=== PATIENT | female | born 1940 | race Caucasian/White ===

== ENCOUNTER 2016-12-08 16:24 | Inpatient (IN) | payer OTHER ==
[~2016-12-08] VITALS: Ht 175.3 cm; Wt 82.4 kg
[~2016-12-08 16:24] MED LIST: ACET-1757 PO; CLON0.1T PO; CYCL-259 PO; DIAZ5TAB4 PO; FAMO20TA7 PO; FOLI-17 PO; FURO-93 PO; HYDR-3144 PO; IPRA3AMP IPPB; LEVO125T PO; LISI-170 PO; MAGN400O4 PO; MAGN400T7 PO; MULT-6 PO; OMEP-110 PO; PHEN100C PO; POTA10TA11 PO; SIMV40TA PO; THIA100T10 PO; TRAM-28 PO; TRAM50TA2 PO; TRAZ150T68 PO; WARF2TAB PO; WARF3TAB PO
[2016-12-08 17:18] VITALS: BP 133/88
[2016-12-08] MEDS ORDERED: PLEASE ENTER HEIGHT AND WEIGHT MC SCH (18:00)
[2016-12-08] MEDS: FUROSEMIDE 40 MG/4 ML IV SCH (18:27)
[2016-12-08] MEDS: DOBUTAMINE 250 MG in SODIUM CHLORIDE 0.9% 230 ML IV PRN (18:34)
[2016-12-08 18:49] LABS: BLOOD UREA NITROGEN 49 mg/dL (7-18)
[2016-12-08 18:53] LABS: ASPARTATE AMINO TRANSFERASE 17 U/L (15-37)
[2016-12-08 19:05] LABS: ANISOCYTOSIS 1+; POLYCHROMASIA 1+; VERIFY COUNTS? YES
[2016-12-08 19:06] LABS: LARGE PLATELETS 1+; OVALOCYTES 1+
[2016-12-08 19:08] LABS: DIFF TOTAL CELLS COUNTED 200 CELL DIFF
[2016-12-08 19:18] VITALS: BP 147/77
[2016-12-08] MEDS: PHENYTOIN 100 MG CAPSULE PO SCH (20:28)
[2016-12-09] MEDS: ZOLPIDEM 5MG TABLET PO PRN (01:19)
[2016-12-09 01:32] VITALS: BP 134/51
[2016-12-09] MEDS: DOBUTAMINE 250 MG in SODIUM CHLORIDE 0.9% 230 ML IV PRN ×3 (04:03→22:40)
[2016-12-09] MEDS: LEVOTHYROXINE 150 MCG TABLET PO SCH (06:28)
[2016-12-09 07:35] VITALS: BP 144/75
[2016-12-09] MEDS: METOLAZONE 2.5 MG TABLET PO SCH (08:23)
[2016-12-09] MEDS: SERTRALINE 50MG TABLET PO SCH (08:23)
[2016-12-09] MEDS: LISINOPRIL 5 MG TABLET PO SCH (08:24)
[2016-12-09] MEDS: PHENYTOIN 100 MG CAPSULE PO SCH ×3 (08:24→22:34)
[2016-12-09] MEDS: FUROSEMIDE 40 MG/4 ML IV SCH (08:25)
[2016-12-09] MEDS: SPIRONOLACTONE 25 MG TABLET PO SCH (08:25)
[2016-12-09] MEDS: POTASSIUM CHLORIDE 20 MEQ TAB.ER.PRT PO SCH (08:25)
[2016-12-09 14:45] VITALS: BP 115/74
[2016-12-09 15:37] VITALS: BP 128/60
[2016-12-09] MEDS: FUROSEMIDE 100 MG/10 ML IV SCH (15:38)
[2016-12-09 18:32] VITALS: BP 148/71
[2016-12-09] MEDS: CARVEDILOL 3.125 MG TABLET PO SCH (18:37)
[2016-12-10] MEDS: ZOLPIDEM 5MG TABLET PO PRN (01:06)
[2016-12-10 01:13] VITALS: BP 152/75
[2016-12-10 06:05] LABS: BLOOD UREA NITROGEN 34 mg/dL (7-18)
[2016-12-10] MEDS: CARVEDILOL 3.125 MG TABLET PO SCH ×2 (06:17→18:19)
[2016-12-10] MEDS: LEVOTHYROXINE 150 MCG TABLET PO SCH (06:17)
[2016-12-10 06:50] VITALS: BP 147/71
[2016-12-10] MEDS: DOBUTAMINE 250 MG in SODIUM CHLORIDE 0.9% 230 ML IV PRN (08:10)
[2016-12-10] MEDS: LISINOPRIL 5 MG TABLET PO SCH (09:00)
[2016-12-10] MEDS: FUROSEMIDE 100 MG/10 ML IV SCH ×2 (09:00→18:19)
[2016-12-10] MEDS: POTASSIUM CHLORIDE 20 MEQ TAB.ER.PRT PO SCH (09:00)
[2016-12-10] MEDS: PHENYTOIN 100 MG CAPSULE PO SCH ×3 (09:00→21:30)
[2016-12-10] MEDS: SERTRALINE 50MG TABLET PO SCH (09:00)
[2016-12-10] MEDS: SPIRONOLACTONE 25 MG TABLET PO SCH (09:00)
[2016-12-10] MEDS ORDERED: MAGNESIUM SULFATE PMX 4GM/100M 100 ML IV ONE (09:00)
[2016-12-10] MEDS: METOLAZONE 2.5 MG TABLET PO SCH (09:00)
[2016-12-10] MEDS ORDERED: methylPREDNISolone 4mg DOSE PACK PO SCH (11:30)
[2016-12-10] MEDS ORDERED: ENOXAPARIN 30 MG/0.3 ML SQ SCH (12:30)
[2016-12-10 15:27] VITALS: BP_SYST 127; BP_SYST 71; BP_DIAS 70
[2016-12-10] MEDS: DIPHENHYDRAMINE 50 MG CAPSULE PO PRN ×2 (15:29→23:38)
[2016-12-10] MEDS ORDERED: DOBUTAMINE 250 MG in SODIUM CHLORIDE 0.9% 230 ML IV PRN (16:00)
[2016-12-10 19:10] VITALS: BP 136/74
[2016-12-11] MEDS: ZOLPIDEM 5MG TABLET PO PRN (01:22)
[2016-12-11 02:39] VITALS: BP 123/70
[2016-12-11] MEDS: CARVEDILOL 3.125 MG TABLET PO SCH ×2 (05:48→18:19)
[2016-12-11] MEDS: LEVOTHYROXINE 150 MCG TABLET PO SCH (05:49)
[2016-12-11 07:16] VITALS: BP 113/67
[2016-12-11] MEDS: METOLAZONE 2.5 MG TABLET PO SCH (07:54)
[2016-12-11] MEDS: FUROSEMIDE 100 MG/10 ML IV SCH (07:54)
[2016-12-11] MEDS: SERTRALINE 50MG TABLET PO SCH (07:54)
[2016-12-11] MEDS: LISINOPRIL 5 MG TABLET PO SCH (07:55)
[2016-12-11] MEDS: POTASSIUM CHLORIDE 20 MEQ TAB.ER.PRT PO SCH (07:55)
[2016-12-11] MEDS: SPIRONOLACTONE 25 MG TABLET PO SCH (07:55)
[2016-12-11] MEDS: PHENYTOIN 100 MG CAPSULE PO SCH ×3 (07:55→21:13)
[2016-12-11 12:41] VITALS: BP 125/74
[2016-12-11] MEDS: HYDROCORTISONE CRM 1%, 30GM TP SCH ×2 (14:56→21:15)
[2016-12-11] MEDS: ENOXAPARIN 40 MG/0.4 ML SQ SCH (14:57)
[2016-12-11] MEDS: FUROSEMIDE 40 MG TABLET PO SCH (18:22)
[2016-12-11 21:14] VITALS: BP 122/75
[2016-12-11] MEDS: DIPHENHYDRAMINE 50 MG CAPSULE PO PRN (23:18)
[2016-12-12] MEDS: ZOLPIDEM 5MG TABLET PO PRN (00:35)
[2016-12-12 01:05] VITALS: BP 131/78
[2016-12-12 05:41] LABS: BLOOD UREA NITROGEN 33 mg/dL (7-18)
[2016-12-12] MEDS: LEVOTHYROXINE 150 MCG TABLET PO SCH (05:59)
[2016-12-12] MEDS: CARVEDILOL 3.125 MG TABLET PO SCH (05:59)
[2016-12-12 08:17] VITALS: BP 128/76
[2016-12-12] MEDS ORDERED: METOLAZONE 2.5 MG TABLET PO SCH (09:00)
[2016-12-12] MEDS: LISINOPRIL 5 MG TABLET PO SCH (09:12)
[2016-12-12] MEDS: POTASSIUM CHLORIDE 20 MEQ TAB.ER.PRT PO SCH (09:12)
[2016-12-12] MEDS: SERTRALINE 50MG TABLET PO SCH (09:12)
[2016-12-12] MEDS: SPIRONOLACTONE 25 MG TABLET PO SCH (09:13)
[2016-12-12] MEDS: PHENYTOIN 100 MG CAPSULE PO SCH (09:13)
[2016-12-12] MEDS: HYDROCORTISONE CRM 1%, 30GM TP SCH (09:13)
[2016-12-12] MEDS: FUROSEMIDE 40 MG TABLET PO SCH (09:13)
[2016-12-12] MEDS ORDERED: SERT50TA5 PO (10:32)
[2016-12-12] MEDS ORDERED: HYDR25TA11 PO (10:32)
[2016-12-12] MEDS ORDERED: CARV6.2512 PO (10:32)
[2016-12-12] MEDS ORDERED: POTA8TAB PO (10:32)
[2016-12-12] MEDS ORDERED: OMEP-110 PO (10:32)
[2016-12-12] MEDS ORDERED: METO2.5T PO (10:32)
[2016-12-12] MEDS ORDERED: ASPI-621 PO (10:32)
[2016-12-12] MEDS ORDERED: SPIR25TA3 PO (10:32)
[2016-12-12] MEDS ORDERED: FURO20TA3 PO (10:32)
[2016-12-12] MEDS ORDERED: LISI5TAB7 PO (10:50)
[2016-12-12] MEDS: ENOXAPARIN 40 MG/0.4 ML SQ SCH (13:20)
[2016-12-12 14:21] VITALS: BP 144/84
== END 2016-12-12 12:31 | disposition home health service (06) | DRG 308 ==
LOC: 5SO 16:24
PROVIDERS: ADMIT Internal Medicine Cardiovascular Disease; ATTEND Internal Medicine Cardiovascular Disease
DX: I47.2 Ventricular tachycardia (principal); I50.43 Acute on chronic combined systolic (congestive) and diastolic (congestive) heart failure; I42.8 Other cardiomyopathies; M87.9 Osteonecrosis, unspecified; G40.909 Epilepsy, unspecified, not intractable, without status epilepticus; Z96.649 Presence of unspecified artificial hip joint; L29.9 Pruritus, unspecified; Z88.8 Allergy status to other drugs, medicaments and biological substances; Z86.711 Personal history of pulmonary embolism; Z99.3 Dependence on wheelchair; Z82.49 Family history of ischemic heart disease and other diseases of the circulatory system; Z72.89 Other problems related to lifestyle; Z86.718 Personal history of other venous thrombosis and embolism; Z87.891 Personal history of nicotine dependence
CPT/HCPCS: 36415; 71020; 80048; 80053; 83735; 85025; 93005; 93922; 93970; J1650; J1940; J7509; 29581-50; J1250; J3475; J7050; Q0177

== ENCOUNTER → 2016-12-15 | Outpatient (CLI) | payer OTHER ==
[~2016-12-15] MED LIST changes: +ASPI-621 PO; +CARV6.2512 PO; +FURO20TA3 PO; +HYDR25TA11 PO; +LISI5TAB7 PO; +METO2.5T PO; +POTA8TAB PO; +SERT50TA5 PO; +SPIR25TA3 PO
== END | disposition home or self-care (01) ==
LOC: WOUND 08:11
PROVIDERS: ATTEND Internal Medicine
DX: I87.333 Chronic venous hypertension (idiopathic) with ulcer and inflammation of bilateral lower extremity (principal); L97.222 Non-pressure chronic ulcer of left calf with fat layer exposed; I50.9 Heart failure, unspecified; Z72.89 Other problems related to lifestyle; Z87.891 Personal history of nicotine dependence; Z86.711 Personal history of pulmonary embolism; Z86.718 Personal history of other venous thrombosis and embolism
CPT/HCPCS: 11042; G0463; WOU0463

== ENCOUNTER → 2016-12-22 | Outpatient (CLI) | payer OTHER | END | disposition home or self-care (01) | LOC: WOUND 13:57 | PROVIDERS: ATTEND Internal Medicine | DX: I87.332 Chronic venous hypertension (idiopathic) with ulcer and inflammation of left lower extremity (principal); L97.222 Non-pressure chronic ulcer of left calf with fat layer exposed; Z86.718 Personal history of other venous thrombosis and embolism; Z86.711 Personal history of pulmonary embolism; I50.43 Acute on chronic combined systolic (congestive) and diastolic (congestive) heart failure; Z87.891 Personal history of nicotine dependence; Z72.89 Other problems related to lifestyle | CPT/HCPCS: 97597 ==

== ENCOUNTER → 2016-12-29 | Outpatient (CLI) | payer OTHER | END | disposition home or self-care (01) | LOC: WOUND 15:00 | PROVIDERS: ATTEND Internal Medicine Infectious Disease | DX: I87.332 Chronic venous hypertension (idiopathic) with ulcer and inflammation of left lower extremity (principal); L97.222 Non-pressure chronic ulcer of left calf with fat layer exposed; Z86.711 Personal history of pulmonary embolism; I50.9 Heart failure, unspecified; F10.19 Alcohol abuse with unspecified alcohol-induced disorder; Z86.718 Personal history of other venous thrombosis and embolism | CPT/HCPCS: 11042; 29581 ==

== ENCOUNTER → 2017-01-05 | Outpatient (CLI) | payer OTHER | END | disposition home or self-care (01) | LOC: WOUND 13:00 | PROVIDERS: ATTEND Nurse Practitioner Family | DX: I87.331 Chronic venous hypertension (idiopathic) with ulcer and inflammation of right lower extremity (principal); L97.811 Non-pressure chronic ulcer of other part of right lower leg limited to breakdown of skin; L97.222 Non-pressure chronic ulcer of left calf with fat layer exposed; F10.19 Alcohol abuse with unspecified alcohol-induced disorder; L08.89 Other specified local infections of the skin and subcutaneous tissue; I50.22 Chronic systolic (congestive) heart failure; Z86.718 Personal history of other venous thrombosis and embolism; Z86.711 Personal history of pulmonary embolism; Z72.89 Other problems related to lifestyle; Z87.891 Personal history of nicotine dependence | CPT/HCPCS: 97597 ==

== ENCOUNTER → 2017-01-11 | Outpatient (CLI) | payer OTHER | END | disposition home or self-care (01) | LOC: WOUND 14:49 | PROVIDERS: ATTEND Internal Medicine | DX: L97.222 Non-pressure chronic ulcer of left calf with fat layer exposed (principal); L08.89 Other specified local infections of the skin and subcutaneous tissue; I87.331 Chronic venous hypertension (idiopathic) with ulcer and inflammation of right lower extremity; L97.811 Non-pressure chronic ulcer of other part of right lower leg limited to breakdown of skin; I50.43 Acute on chronic combined systolic (congestive) and diastolic (congestive) heart failure; F10.19 Alcohol abuse with unspecified alcohol-induced disorder; Z87.891 Personal history of nicotine dependence; Z86.718 Personal history of other venous thrombosis and embolism; Z72.89 Other problems related to lifestyle; Z86.711 Personal history of pulmonary embolism | CPT/HCPCS: 11042; 29581 ==

== ENCOUNTER → 2017-01-20 | Outpatient (CLI) | payer OTHER | END | disposition home or self-care (01) | LOC: WOUND 15:10 | PROVIDERS: ATTEND Internal Medicine | DX: I87.332 Chronic venous hypertension (idiopathic) with ulcer and inflammation of left lower extremity (principal); L97.222 Non-pressure chronic ulcer of left calf with fat layer exposed; F10.19 Alcohol abuse with unspecified alcohol-induced disorder; L08.89 Other specified local infections of the skin and subcutaneous tissue; I50.43 Acute on chronic combined systolic (congestive) and diastolic (congestive) heart failure; Z87.891 Personal history of nicotine dependence; Z86.718 Personal history of other venous thrombosis and embolism; Z86.711 Personal history of pulmonary embolism | CPT/HCPCS: 29581; 97597 ==

== ENCOUNTER → 2017-02-02 | Outpatient (CLI) | payer OTHER | END | disposition home or self-care (01) | LOC: WOUND 14:17 | PROVIDERS: ATTEND Internal Medicine | DX: I87.313 Chronic venous hypertension (idiopathic) with ulcer of bilateral lower extremity (principal); L97.822 Non-pressure chronic ulcer of other part of left lower leg with fat layer exposed; L97.811 Non-pressure chronic ulcer of other part of right lower leg limited to breakdown of skin; I11.0 Hypertensive heart disease with heart failure; I50.9 Heart failure, unspecified; L08.89 Other specified local infections of the skin and subcutaneous tissue; I42.9 Cardiomyopathy, unspecified; Z86.711 Personal history of pulmonary embolism; Z87.891 Personal history of nicotine dependence; Z72.89 Other problems related to lifestyle | CPT/HCPCS: 11042; 29581 ==

== ENCOUNTER → 2017-02-09 | Outpatient (CLI) | payer OTHER | END | disposition home or self-care (01) | LOC: WOUND 14:43 | PROVIDERS: ATTEND Nurse Practitioner Family | DX: I87.332 Chronic venous hypertension (idiopathic) with ulcer and inflammation of left lower extremity (principal); L97.222 Non-pressure chronic ulcer of left calf with fat layer exposed; I50.22 Chronic systolic (congestive) heart failure; L08.89 Other specified local infections of the skin and subcutaneous tissue; G93.1 Anoxic brain damage, not elsewhere classified; F10.19 Alcohol abuse with unspecified alcohol-induced disorder; Z98.890 Other specified postprocedural states; Z86.69 Personal history of other diseases of the nervous system and sense organs; Z86.711 Personal history of pulmonary embolism; Z86.718 Personal history of other venous thrombosis and embolism; Z96.649 Presence of unspecified artificial hip joint | CPT/HCPCS: 11100; 29581 ==

== ENCOUNTER → 2017-02-16 | Outpatient (CLI) | payer OTHER | END | disposition home or self-care (01) | LOC: WOUND 14:51 | PROVIDERS: ATTEND Nurse Practitioner Family | DX: I87.333 Chronic venous hypertension (idiopathic) with ulcer and inflammation of bilateral lower extremity (principal); L97.222 Non-pressure chronic ulcer of left calf with fat layer exposed; L97.811 Non-pressure chronic ulcer of other part of right lower leg limited to breakdown of skin; F10.19 Alcohol abuse with unspecified alcohol-induced disorder; L08.89 Other specified local infections of the skin and subcutaneous tissue; G93.1 Anoxic brain damage, not elsewhere classified; L88 Pyoderma gangrenosum; I11.0 Hypertensive heart disease with heart failure; I50.22 Chronic systolic (congestive) heart failure; Z86.69 Personal history of other diseases of the nervous system and sense organs; Z96.649 Presence of unspecified artificial hip joint; Z87.891 Personal history of nicotine dependence; Z86.711 Personal history of pulmonary embolism; Z72.89 Other problems related to lifestyle | CPT/HCPCS: 29581 ==

== ENCOUNTER → 2017-02-16 | Outpatient (CLI) | payer OTHER | END | disposition home or self-care (01) | LOC: EDSTATUS 14:00 → CFH 14:03 | PROVIDERS: ATTEND Internal Medicine Cardiovascular Disease | DX: I08.1 Rheumatic disorders of both mitral and tricuspid valves (principal) | CPT/HCPCS: 93306 ==

== ENCOUNTER → 2017-02-22 | Outpatient (CLI) | payer OTHER | END | disposition home or self-care (01) | LOC: WOUND 11:34 | PROVIDERS: ATTEND Physician Assistant | DX: I87.313 Chronic venous hypertension (idiopathic) with ulcer of bilateral lower extremity (principal); L97.222 Non-pressure chronic ulcer of left calf with fat layer exposed; L97.811 Non-pressure chronic ulcer of other part of right lower leg limited to breakdown of skin; I11.0 Hypertensive heart disease with heart failure; I50.22 Chronic systolic (congestive) heart failure; L88 Pyoderma gangrenosum; Z86.711 Personal history of pulmonary embolism; Z72.89 Other problems related to lifestyle | CPT/HCPCS: 29581 ==

== ENCOUNTER → 2017-03-02 | Outpatient (CLI) | payer OTHER ==
[~2017-03-02] MED LIST changes: -HYDR-3144 PO; +HYDR-3245 PO; -MAGN400O4 PO; +MAGN400O7 PO; -TRAM-28 PO; +TRAM-47 PO; +TRAZ150T62 PO; -TRAZ150T68 PO
== END | disposition home or self-care (01) ==
LOC: WOUND 13:04
PROVIDERS: ATTEND Internal Medicine Infectious Disease
DX: I87.333 Chronic venous hypertension (idiopathic) with ulcer and inflammation of bilateral lower extremity (principal); L97.811 Non-pressure chronic ulcer of other part of right lower leg limited to breakdown of skin; L97.222 Non-pressure chronic ulcer of left calf with fat layer exposed; L88 Pyoderma gangrenosum; L08.89 Other specified local infections of the skin and subcutaneous tissue; I11.0 Hypertensive heart disease with heart failure; I50.22 Chronic systolic (congestive) heart failure; G93.1 Anoxic brain damage, not elsewhere classified; F10.19 Alcohol abuse with unspecified alcohol-induced disorder; Z98.890 Other specified postprocedural states; Z86.69 Personal history of other diseases of the nervous system and sense organs; Z86.711 Personal history of pulmonary embolism; Z72.89 Other problems related to lifestyle; Z96.649 Presence of unspecified artificial hip joint
CPT/HCPCS: 15271; 29581; Q4132

== ENCOUNTER → 2017-03-09 | Outpatient (CLI) | payer OTHER | END | disposition home or self-care (01) | LOC: WOUND 14:57 | PROVIDERS: ATTEND Nurse Practitioner Family | DX: I87.331 Chronic venous hypertension (idiopathic) with ulcer and inflammation of right lower extremity (principal); L97.811 Non-pressure chronic ulcer of other part of right lower leg limited to breakdown of skin; L97.222 Non-pressure chronic ulcer of left calf with fat layer exposed; I11.0 Hypertensive heart disease with heart failure; I50.9 Heart failure, unspecified; L88 Pyoderma gangrenosum; Z98.890 Other specified postprocedural states; Z86.69 Personal history of other diseases of the nervous system and sense organs; Z96.649 Presence of unspecified artificial hip joint; G93.1 Anoxic brain damage, not elsewhere classified; F10.19 Alcohol abuse with unspecified alcohol-induced disorder; Z86.718 Personal history of other venous thrombosis and embolism; Z86.711 Personal history of pulmonary embolism | CPT/HCPCS: 15271; 29581; Q4132 ==

== ENCOUNTER → 2017-03-18 | Outpatient (CLI) | payer OTHER | END | disposition home or self-care (01) | LOC: WOUND 15:05 | PROVIDERS: ATTEND Podiatrist Foot & Ankle Surgery | DX: I87.333 Chronic venous hypertension (idiopathic) with ulcer and inflammation of bilateral lower extremity (principal); L97.222 Non-pressure chronic ulcer of left calf with fat layer exposed; L97.811 Non-pressure chronic ulcer of other part of right lower leg limited to breakdown of skin; L88 Pyoderma gangrenosum; Z86.718 Personal history of other venous thrombosis and embolism; I11.0 Hypertensive heart disease with heart failure; I50.9 Heart failure, unspecified; Z86.711 Personal history of pulmonary embolism; F10.19 Alcohol abuse with unspecified alcohol-induced disorder; Z96.649 Presence of unspecified artificial hip joint | CPT/HCPCS: 15271; 29581; Q4132 ==

== ENCOUNTER → 2017-03-25 | Outpatient (CLI) | payer OTHER | END | disposition home or self-care (01) | LOC: WOUND 14:45 | PROVIDERS: ATTEND Podiatrist Foot & Ankle Surgery | DX: I87.333 Chronic venous hypertension (idiopathic) with ulcer and inflammation of bilateral lower extremity (principal); L97.222 Non-pressure chronic ulcer of left calf with fat layer exposed; L97.811 Non-pressure chronic ulcer of other part of right lower leg limited to breakdown of skin; L88 Pyoderma gangrenosum; F10.19 Alcohol abuse with unspecified alcohol-induced disorder; I11.0 Hypertensive heart disease with heart failure; I50.20 Unspecified systolic (congestive) heart failure; Z86.718 Personal history of other venous thrombosis and embolism; Z86.711 Personal history of pulmonary embolism; Z96.649 Presence of unspecified artificial hip joint; Z87.891 Personal history of nicotine dependence | CPT/HCPCS: 15271; Q4132 ==

== ENCOUNTER → 2017-04-01 | Outpatient (CLI) | payer OTHER | END | disposition home or self-care (01) | LOC: WOUND 15:24 | PROVIDERS: ATTEND Podiatrist Foot & Ankle Surgery | DX: I87.332 Chronic venous hypertension (idiopathic) with ulcer and inflammation of left lower extremity (principal); L97.222 Non-pressure chronic ulcer of left calf with fat layer exposed; L88 Pyoderma gangrenosum; I11.0 Hypertensive heart disease with heart failure; I50.20 Unspecified systolic (congestive) heart failure; F10.19 Alcohol abuse with unspecified alcohol-induced disorder; Z87.891 Personal history of nicotine dependence; Z86.718 Personal history of other venous thrombosis and embolism; Z86.711 Personal history of pulmonary embolism; Z96.649 Presence of unspecified artificial hip joint | CPT/HCPCS: 29581 ==

== ENCOUNTER → 2017-04-08 | Outpatient (CLI) | payer OTHER | END | disposition home or self-care (01) | LOC: WOUND 15:02 | PROVIDERS: ATTEND Podiatrist Foot & Ankle Surgery | DX: I87.332 Chronic venous hypertension (idiopathic) with ulcer and inflammation of left lower extremity (principal); L97.222 Non-pressure chronic ulcer of left calf with fat layer exposed; L88 Pyoderma gangrenosum; I11.0 Hypertensive heart disease with heart failure; I50.22 Chronic systolic (congestive) heart failure; S81.801D Unspecified open wound, right lower leg, subsequent encounter; F10.19 Alcohol abuse with unspecified alcohol-induced disorder; Z86.711 Personal history of pulmonary embolism; Z72.89 Other problems related to lifestyle; Z87.891 Personal history of nicotine dependence; Z86.718 Personal history of other venous thrombosis and embolism; Z96.649 Presence of unspecified artificial hip joint; X58.XXXD Exposure to other specified factors, subsequent encounter | CPT/HCPCS: 97597 ==

== ENCOUNTER → 2017-04-15 | Outpatient (CLI) | payer OTHER | END | disposition home or self-care (01) | LOC: WOUND 14:47 | PROVIDERS: ATTEND Podiatrist Foot & Ankle Surgery | DX: I87.312 Chronic venous hypertension (idiopathic) with ulcer of left lower extremity (principal); L97.222 Non-pressure chronic ulcer of left calf with fat layer exposed; S81.801D Unspecified open wound, right lower leg, subsequent encounter; L88 Pyoderma gangrenosum; L03.115 Cellulitis of right lower limb; I11.0 Hypertensive heart disease with heart failure; I50.22 Chronic systolic (congestive) heart failure; F10.19 Alcohol abuse with unspecified alcohol-induced disorder; Z87.891 Personal history of nicotine dependence; Z86.718 Personal history of other venous thrombosis and embolism; Z86.711 Personal history of pulmonary embolism; X58.XXXD Exposure to other specified factors, subsequent encounter | CPT/HCPCS: 29581 ==

== ENCOUNTER → 2017-04-22 | Outpatient (CLI) | payer OTHER | END | disposition home or self-care (01) | LOC: WOUND 15:07 | PROVIDERS: ATTEND Podiatrist Foot & Ankle Surgery | DX: L97.222 Non-pressure chronic ulcer of left calf with fat layer exposed (principal); L88 Pyoderma gangrenosum; L03.115 Cellulitis of right lower limb; S81.801D Unspecified open wound, right lower leg, subsequent encounter; I11.0 Hypertensive heart disease with heart failure; I50.22 Chronic systolic (congestive) heart failure; F10.19 Alcohol abuse with unspecified alcohol-induced disorder; Z87.891 Personal history of nicotine dependence; Z86.718 Personal history of other venous thrombosis and embolism; Z86.711 Personal history of pulmonary embolism; Z72.89 Other problems related to lifestyle; X58.XXXD Exposure to other specified factors, subsequent encounter | CPT/HCPCS: 29581 ==

== ENCOUNTER → 2017-04-29 | Outpatient (CLI) | payer OTHER | END | disposition home or self-care (01) | LOC: WOUND 15:20 | PROVIDERS: ATTEND Podiatrist Foot & Ankle Surgery | DX: I87.333 Chronic venous hypertension (idiopathic) with ulcer and inflammation of bilateral lower extremity (principal); L97.821 Non-pressure chronic ulcer of other part of left lower leg limited to breakdown of skin; L97.811 Non-pressure chronic ulcer of other part of right lower leg limited to breakdown of skin; L88 Pyoderma gangrenosum; Z72.89 Other problems related to lifestyle; Z87.891 Personal history of nicotine dependence; Z86.718 Personal history of other venous thrombosis and embolism; Z86.711 Personal history of pulmonary embolism; I50.20 Unspecified systolic (congestive) heart failure | CPT/HCPCS: 29581 ==

== ENCOUNTER → 2017-05-06 | Outpatient (CLI) | payer OTHER | END | disposition home or self-care (01) | LOC: WOUND 09:07 | PROVIDERS: ATTEND Podiatrist Foot & Ankle Surgery | DX: I87.332 Chronic venous hypertension (idiopathic) with ulcer and inflammation of left lower extremity (principal); L97.222 Non-pressure chronic ulcer of left calf with fat layer exposed; E11.52 Type 2 diabetes mellitus with diabetic peripheral angiopathy with gangrene; L88 Pyoderma gangrenosum; Z86.711 Personal history of pulmonary embolism; I11.0 Hypertensive heart disease with heart failure; I50.20 Unspecified systolic (congestive) heart failure; Z87.891 Personal history of nicotine dependence; Z72.89 Other problems related to lifestyle | CPT/HCPCS: G0463; WOU0463 ==

== ENCOUNTER → 2017-05-13 | Outpatient (CLI) | payer OTHER | END | disposition home or self-care (01) | LOC: WOUND 15:10 | PROVIDERS: ATTEND Internal Medicine Cardiovascular Disease | DX: I87.332 Chronic venous hypertension (idiopathic) with ulcer and inflammation of left lower extremity (principal); E11.622 Type 2 diabetes mellitus with other skin ulcer; L97.222 Non-pressure chronic ulcer of left calf with fat layer exposed; L88 Pyoderma gangrenosum; Z86.711 Personal history of pulmonary embolism; E11.52 Type 2 diabetes mellitus with diabetic peripheral angiopathy with gangrene; Z72.89 Other problems related to lifestyle; Z87.891 Personal history of nicotine dependence | CPT/HCPCS: G0463; WOU0463 ==

== ENCOUNTER → 2017-05-20 | Outpatient (CLI) | payer OTHER | END | disposition home or self-care (01) | LOC: WOUND 15:17 | PROVIDERS: ATTEND Podiatrist Foot & Ankle Surgery | DX: I87.332 Chronic venous hypertension (idiopathic) with ulcer and inflammation of left lower extremity (principal); L97.222 Non-pressure chronic ulcer of left calf with fat layer exposed; L88 Pyoderma gangrenosum; Z86.711 Personal history of pulmonary embolism; E11.52 Type 2 diabetes mellitus with diabetic peripheral angiopathy with gangrene; E11.622 Type 2 diabetes mellitus with other skin ulcer; I11.0 Hypertensive heart disease with heart failure; I50.20 Unspecified systolic (congestive) heart failure; Z87.891 Personal history of nicotine dependence; Z72.89 Other problems related to lifestyle | CPT/HCPCS: G0463; WOU0463 ==

== ENCOUNTER → 2017-06-03 | Outpatient (CLI) | payer OTHER | END | disposition home or self-care (01) | LOC: WOUND 15:07 | PROVIDERS: ATTEND Podiatrist Foot & Ankle Surgery | DX: E11.622 Type 2 diabetes mellitus with other skin ulcer (principal); L97.222 Non-pressure chronic ulcer of left calf with fat layer exposed; S81.801D Unspecified open wound, right lower leg, subsequent encounter; I87.332 Chronic venous hypertension (idiopathic) with ulcer and inflammation of left lower extremity; L88 Pyoderma gangrenosum; E11.52 Type 2 diabetes mellitus with diabetic peripheral angiopathy with gangrene; Z86.711 Personal history of pulmonary embolism; I11.0 Hypertensive heart disease with heart failure; I50.20 Unspecified systolic (congestive) heart failure; X58.XXXD Exposure to other specified factors, subsequent encounter | CPT/HCPCS: G0463; WOU0463 ==

== ENCOUNTER → 2017-06-16 | Outpatient (CLI) | payer OTHER | END | disposition home or self-care (01) | LOC: WOUND 15:00 | PROVIDERS: ATTEND Internal Medicine | DX: I87.332 Chronic venous hypertension (idiopathic) with ulcer and inflammation of left lower extremity (principal); E11.622 Type 2 diabetes mellitus with other skin ulcer; L97.222 Non-pressure chronic ulcer of left calf with fat layer exposed; L88 Pyoderma gangrenosum; E11.52 Type 2 diabetes mellitus with diabetic peripheral angiopathy with gangrene; I11.0 Hypertensive heart disease with heart failure; I50.20 Unspecified systolic (congestive) heart failure; Z86.711 Personal history of pulmonary embolism; Z86.718 Personal history of other venous thrombosis and embolism; Z87.891 Personal history of nicotine dependence; Z72.89 Other problems related to lifestyle | CPT/HCPCS: G0463; WOU0463 ==

== ENCOUNTER → 2017-06-30 | Outpatient (CLI) | payer OTHER | END | disposition home or self-care (01) | LOC: WOUND 15:10 | PROVIDERS: ATTEND Internal Medicine | DX: I87.312 Chronic venous hypertension (idiopathic) with ulcer of left lower extremity (principal); E11.622 Type 2 diabetes mellitus with other skin ulcer; L97.222 Non-pressure chronic ulcer of left calf with fat layer exposed; E11.52 Type 2 diabetes mellitus with diabetic peripheral angiopathy with gangrene; I11.0 Hypertensive heart disease with heart failure; I50.20 Unspecified systolic (congestive) heart failure; L88 Pyoderma gangrenosum; Z87.891 Personal history of nicotine dependence; Z86.718 Personal history of other venous thrombosis and embolism; Z86.711 Personal history of pulmonary embolism; Z72.89 Other problems related to lifestyle | CPT/HCPCS: G0463; WOU0463 ==

== ENCOUNTER → 2017-07-14 | Outpatient (CLI) | payer OTHER | END | disposition home or self-care (01) | LOC: WOUND 14:36 | PROVIDERS: ATTEND Internal Medicine | DX: I87.312 Chronic venous hypertension (idiopathic) with ulcer of left lower extremity (principal); E11.622 Type 2 diabetes mellitus with other skin ulcer; L97.222 Non-pressure chronic ulcer of left calf with fat layer exposed; L88 Pyoderma gangrenosum; E11.52 Type 2 diabetes mellitus with diabetic peripheral angiopathy with gangrene; I11.0 Hypertensive heart disease with heart failure; I50.20 Unspecified systolic (congestive) heart failure; Z72.89 Other problems related to lifestyle; Z87.891 Personal history of nicotine dependence; Z86.718 Personal history of other venous thrombosis and embolism; Z86.711 Personal history of pulmonary embolism; L03.115 Cellulitis of right lower limb | CPT/HCPCS: G0463; WOU0463 ==

== ENCOUNTER → 2017-07-21 | Outpatient (CLI) | payer OTHER | END | disposition home or self-care (01) | LOC: WOUND 08:00 | PROVIDERS: ATTEND Internal Medicine | DX: I87.312 Chronic venous hypertension (idiopathic) with ulcer of left lower extremity (principal); E11.622 Type 2 diabetes mellitus with other skin ulcer; L97.222 Non-pressure chronic ulcer of left calf with fat layer exposed; L88 Pyoderma gangrenosum; I11.0 Hypertensive heart disease with heart failure; I50.20 Unspecified systolic (congestive) heart failure; E11.52 Type 2 diabetes mellitus with diabetic peripheral angiopathy with gangrene; Z87.891 Personal history of nicotine dependence; Z86.718 Personal history of other venous thrombosis and embolism; Z86.711 Personal history of pulmonary embolism; Z72.89 Other problems related to lifestyle | CPT/HCPCS: G0463; WOU0463 ==

== ENCOUNTER → 2017-07-28 | Outpatient (CLI) | payer OTHER | END | disposition home or self-care (01) | LOC: WOUND 14:30 | PROVIDERS: ATTEND Internal Medicine | DX: I87.312 Chronic venous hypertension (idiopathic) with ulcer of left lower extremity (principal); L97.222 Non-pressure chronic ulcer of left calf with fat layer exposed; L88 Pyoderma gangrenosum; E11.52 Type 2 diabetes mellitus with diabetic peripheral angiopathy with gangrene; I11.0 Hypertensive heart disease with heart failure; I50.20 Unspecified systolic (congestive) heart failure; L03.115 Cellulitis of right lower limb; Z87.891 Personal history of nicotine dependence; Z86.718 Personal history of other venous thrombosis and embolism; Z86.711 Personal history of pulmonary embolism; Z72.89 Other problems related to lifestyle | CPT/HCPCS: G0463; WOU0463 ==

== ENCOUNTER → 2017-08-11 | Outpatient (CLI) | payer OTHER ==
[~2017-08-11] MED LIST changes: +BUME0.5T PO
== END | disposition home or self-care (01) ==
LOC: STAR 14:16
PROVIDERS: ATTEND Internal Medicine Cardiovascular Disease
DX: Z01.818 Encounter for other preprocedural examination (principal); I50.23 Acute on chronic systolic (congestive) heart failure
CPT/HCPCS: 36415; 80048; 85025; 85610; 85730

== ENCOUNTER → 2017-08-11 | Outpatient (CLI) | payer OTHER | END | disposition home or self-care (01) | LOC: WOUND 15:02 | PROVIDERS: ATTEND Internal Medicine | DX: I87.332 Chronic venous hypertension (idiopathic) with ulcer and inflammation of left lower extremity (principal); E11.622 Type 2 diabetes mellitus with other skin ulcer; L97.222 Non-pressure chronic ulcer of left calf with fat layer exposed; L88 Pyoderma gangrenosum; I11.0 Hypertensive heart disease with heart failure; I50.20 Unspecified systolic (congestive) heart failure; E11.52 Type 2 diabetes mellitus with diabetic peripheral angiopathy with gangrene; Z87.891 Personal history of nicotine dependence; Z86.711 Personal history of pulmonary embolism; Z86.718 Personal history of other venous thrombosis and embolism; Z72.89 Other problems related to lifestyle | CPT/HCPCS: G0463; WOU0463 ==

== ENCOUNTER 2017-08-16 08:35 | Day surgery (SDC) | payer OTHER ==
[2017-08-11 15:00] LABS: MEAN CORPUSCULAR HEMOGLOBIN 30.5 pg (27.0-34.8); MEAN CORPUSCULAR HGB CONC 31.5 g/dL (32.4-35.8); MEAN CORPUSCULAR VOLUME 96.7 fL (80-100); MEAN PLATELET VOLUME 8.6 fL (7.4-10.4); PLATELET COUNT 187 x10^3/uL (130-400); RED BLOOD COUNT 4.84 x10^6/uL (3.82-5.3); RED CELL DISTRIBUTION WIDTH 16.8 % (9.6-15.2)
[2017-08-11 15:10] LABS: INTERNATIONAL NORMALIZED RATIO 1.11 (0.93-1.1); PROTHROMBIN TIME 11.5 Seconds (9.6-11.5)
[2017-08-11 15:12] LABS: ANION GAP 5 mmol/L (5-15); CALCIUM 8.9 mg/dL (8.5-10.1); CHLORIDE 99 mmol/L (98-107); CREATININE 1.34 mg/dL (0.55-1.02)
[2017-08-11 15:24] LABS: MD YES
[2017-08-11 15:27] LABS: BASOS% (MANUAL) 2 % (0-1); LYMPH#(MANUAL) 0.43 x10^3/uL (1-3.4); LYMPHS% (MANUAL) 9 % (22-44); MONOS#(MANUAL) 0.29 x10^3/uL (0.3-2.7); MONOS% (MANUAL) 6 % (2-9)
[2017-08-11 15:28] LABS: EOS#(MANUAL) 1.92 x10^3/uL (0.0-0.4); EOS% (MANUAL) 40 % (1-7); SEG#(MANUAL) 2.06 x10^3/uL (1.8-6.8); SEGS% (MANUAL) 43 % (42-75)
[2017-08-11 15:29] LABS: <PLATELET ESTIMATE> ADEQUATE; ANISOCYTOSIS 1+; HYPOCHROMIA 1+; OVALOCYTES 1+
[2017-08-11 15:30] LABS: LARGE PLATELETS 1+
[~2017-08-16] VITALS: Ht 177.8 cm; Wt 81.8 kg
[~2017-08-16 08:35] MED LIST changes: -BUME0.5T PO
[2017-08-16] MEDS ORDERED: BUME0.5T PO (09:17)
[2017-08-16] MEDS ORDERED: MIDAZOLAM 1 MG/ML, 2ML ONE (09:53)
[2017-08-16] MEDS ORDERED: LIDOCAINE 2%, 20ML ONE (09:53)
[2017-08-16] MEDS ORDERED: FENTANYL PF 100 MCG/2ML ONE (09:53)
[2017-08-16] MEDS ORDERED: CARVEDILOL 6.25 MG TABLET PO SCH (11:00)
[2017-08-16] MEDS ORDERED: BUMETANIDE 1 MG PO SCH (21:00)
[2017-08-17] MEDS ORDERED: LEVOTHYROXINE 125 MCG TABLET PO SCH (06:00)
[2017-08-17] MEDS ORDERED: METOLAZONE 2.5 MG TABLET PO SCH (09:00)
[2017-08-17] MEDS ORDERED: SERTRALINE 50MG TABLET PO SCH (09:00)
[2017-08-17] MEDS ORDERED: SPIRONOLACTONE 25 MG TABLET PO SCH (09:00)
[2017-08-17] MEDS ORDERED: OMEPRAZOLE 20 MG CAPSULE.DR PO SCH (09:00)
== END 2017-08-16 12:10 | disposition home or self-care (01) ==
LOC: CACL 08:35
PROVIDERS: ATTEND Internal Medicine Cardiovascular Disease
DX: I50.23 Acute on chronic systolic (congestive) heart failure (principal); I42.9 Cardiomyopathy, unspecified; Z88.1 Allergy status to other antibiotic agents; Z88.8 Allergy status to other drugs, medicaments and biological substances
CPT/HCPCS: 93451; 99156; C1894; J2250; J3010; J3490; 36415; 80048; 85025; 85610; 85730

== ENCOUNTER 2017-08-27 09:03 | Inpatient (IN) | payer OTHER ==
[~2017-08-27] VITALS: Ht 175.3 cm; Wt 75.9 kg
[~2017-08-27 09:03] MED LIST changes: -AMOX1TAB64 PO
[2017-08-27] MEDS ORDERED: LISI5TAB7 PO (09:45)
[2017-08-27] MEDS ORDERED: SODIUM CHLORIDE FLUSH 10ML SYR IVF ONE (10:00)
[2017-08-27 10:21] LABS: MEAN CORPUSCULAR HEMOGLOBIN 30.9 pg (27.0-34.8); MEAN CORPUSCULAR HGB CONC 32.1 g/dL (32.4-35.8); MEAN CORPUSCULAR VOLUME 96.2 fL (80-100); MEAN PLATELET VOLUME 9.3 fL (7.4-10.4); PLATELET COUNT 174 x10^3/uL (130-400); RED BLOOD COUNT 4.58 x10^6/uL (3.82-5.3); RED CELL DISTRIBUTION WIDTH 17.7 % (9.6-15.2)
[2017-08-27 10:26] LABS: MD YES
[2017-08-27 10:34] LABS: ANION GAP 4 mmol/L (5-15); CALCIUM 8.5 mg/dL (8.5-10.1); CHLORIDE 98 mmol/L (98-107)
[2017-08-27 10:38] LABS: ALANINE AMINOTRANSFERASE 13 U/L (12-78); ALKALINE PHOSPHATASE 157 U/L (45-117); BILIRUBIN,TOTAL 1.1 mg/dL (0.2-1.0); CREATININE 1.25 mg/dL (0.55-1.02); TOTAL PROTEIN 7.1 g/dL (6.4-8.2)
[2017-08-27 10:49] LABS: EOS#(MANUAL) 1.73 x10^3/uL (0.0-0.4); EOS% (MANUAL) 34 % (1-7); LYMPHS% (MANUAL) 4 % (22-44); MONOS#(MANUAL) 0.36 x10^3/uL (0.3-2.7); MONOS% (MANUAL) 7 % (2-9); SEG#(MANUAL) 2.81 x10^3/uL (1.8-6.8); SEGS% (MANUAL) 55 % (42-75)
[2017-08-27 10:50] LABS: <PLATELET ESTIMATE> ADEQUATE; ANISOCYTOSIS 1+; LARGE PLATELETS 1+; OVALOCYTES 1+; POLYCHROMASIA 1+
[2017-08-27] MEDS ORDERED: HYDROcodone/APAP 5/325 TABLET ONE (11:09)
[2017-08-27 11:15] LABS: SEDIMENTATION RATE 17 mm/hr (0-20)
[2017-08-27 11:25] LABS: MICROSCOPIC AUTO
[2017-08-27 11:26] LABS: CULTURE INDICATED? NO
[2017-08-27] MEDS ORDERED: HYDROcodone/APAP 5/325 TABLET PO ONE (11:30)
[2017-08-27] MEDS ORDERED: LORazepam 0.5MG TABLET PO PRN (14:30)
[2017-08-27] MEDS ORDERED: GUAIFENESIN/DM 200-20MG, 10ML UDC PO PRN (14:30)
[2017-08-27] MEDS ORDERED: LORazepam 1MG TABLET PO PRN ×3 (14:30)
[2017-08-27] MEDS ORDERED: DOCUSATE 100 MG CAPSULE PO PRN (14:30)
[2017-08-27] MEDS ORDERED: VANCOMYCIN PER PHARMACY MC PRN (14:30)
[2017-08-27] MEDS ORDERED: ONDANSETRON 2MG/ML, 2ML IVPush PRN (14:30)
[2017-08-27] MEDS ORDERED: hydrALAzine 20 MG/ML, 1ML IVPush PRN (14:30)
[2017-08-27] MEDS ORDERED: PIPERACILLIN/TAZO/PMX 3.375GM 50 ML ONE (14:47)
[2017-08-27] MEDS: PIPERACILLIN/TAZO/PMX 3.375GM 50 ML IV SCH ×2 (14:55→20:59)
[2017-08-27 16:29] VITALS: BP 144/83
[2017-08-27] MEDS ORDERED: PHARMACOKINETIC MONITORING MC PRN (17:00)
[2017-08-27] MEDS ORDERED: PHARMACOKINETIC CONSULTATION MC ONE (17:00)
[2017-08-27] MEDS ORDERED: VANCOMYCIN 1,500 MG in SODIUM CHLORIDE 0.9% 250 ML IV SCH (17:00)
[2017-08-27] MEDS: LORATADINE 10 MG TABLET PO SCH (18:34)
[2017-08-27] MEDS: HEPARIN 5,000 UNITS/ML, 1ML SQ SCH (18:34)
[2017-08-27] MEDS: OXYcodone IR 5MG TABLET PO PRN (19:27)
[2017-08-27] MEDS: DIPHENHYDRAMINE 25 MG CAPSULE PO PRN (19:27)
[2017-08-27 19:47] VITALS: BP 141/86
[2017-08-27] MEDS: THIAMINE 100MG TABLET PO SCH (20:59)
[2017-08-27] MEDS: BUMETANIDE 1 MG TABLET PO SCH (21:00)
[2017-08-27] MEDS: CARVEDILOL 6.25 MG TABLET PO SCH (21:04)
[2017-08-28 00:38] VITALS: BP 131/88
[2017-08-28] MEDS: PIPERACILLIN/TAZO/PMX 3.375GM 50 ML IV SCH ×2 (02:43→10:18)
[2017-08-28] MEDS: HEPARIN 5,000 UNITS/ML, 1ML SQ SCH ×3 (02:44→21:15)
[2017-08-28 04:56] LABS: MEAN CORPUSCULAR HEMOGLOBIN 30.9 pg (27.0-34.8); MEAN CORPUSCULAR HGB CONC 31.9 g/dL (32.4-35.8); MEAN CORPUSCULAR VOLUME 96.8 fL (80-100); MEAN PLATELET VOLUME 9.2 fL (7.4-10.4); PLATELET COUNT 183 x10^3/uL (130-400); RED BLOOD COUNT 4.72 x10^6/uL (3.82-5.3); RED CELL DISTRIBUTION WIDTH 17.9 % (9.6-15.2)
[2017-08-28 05:05] LABS: ALANINE AMINOTRANSFERASE 11 U/L (12-78); ALBUMIN 2.8 g/dL (3.4-5.0); ANION GAP 6 mmol/L (5-15); CALCIUM 8.5 mg/dL (8.5-10.1); CHLORIDE 99 mmol/L (98-107); CREATININE 1.24 mg/dL (0.55-1.02)
[2017-08-28 05:07] LABS: ALKALINE PHOSPHATASE 138 U/L (45-117); BILIRUBIN,TOTAL 1.2 mg/dL (0.2-1.0)
[2017-08-28 06:04] LABS: MD YES
[2017-08-28 06:08] LABS: EOS% (MANUAL) 34 % (1-7); LYMPH#(MANUAL) 0.62 x10^3/uL (1-3.4); LYMPHS% (MANUAL) 11 % (22-44); MONOS#(MANUAL) 0.56 x10^3/uL (0.3-2.7); MONOS% (MANUAL) 10 % (2-9); SEG#(MANUAL) 2.52 x10^3/uL (1.8-6.8); SEGS% (MANUAL) 45 % (42-75)
[2017-08-28 06:09] LABS: ANISOCYTOSIS 1+
[2017-08-28 06:11] LABS: OVALOCYTES 1+
[2017-08-28] MEDS: LEVOTHYROXINE 125 MCG TABLET PO SCH (06:11)
[2017-08-28 06:12] LABS: <PLATELET ESTIMATE> ADEQUATE; LARGE PLATELETS 1+; POLYCHROMASIA 1+
[2017-08-28 06:58] VITALS: BP 126/80
[2017-08-28] MEDS: DIPHENHYDRAMINE 25 MG CAPSULE PO PRN ×2 (07:29→21:14)
[2017-08-28] MEDS: LORATADINE 10 MG TABLET PO SCH (07:30)
[2017-08-28] MEDS: BUMETANIDE 1 MG TABLET PO SCH ×2 (10:11→21:15)
[2017-08-28] MEDS: OMEPRAZOLE 20 MG CAPSULE.DR PO SCH (10:12)
[2017-08-28] MEDS: METOLAZONE 2.5 MG TABLET PO SCH (10:12)
[2017-08-28] MEDS: SERTRALINE 50MG TABLET PO SCH (10:15)
[2017-08-28] MEDS: THIAMINE 100MG TABLET PO SCH ×2 (10:16→21:15)
[2017-08-28] MEDS: LISINOPRIL 5 MG TABLET PO SCH (10:16)
[2017-08-28] MEDS: CARVEDILOL 6.25 MG TABLET PO SCH ×2 (10:16→21:16)
[2017-08-28] MEDS: MULTIVITAMINS/MINERALS TABLET PO SCH (10:16)
[2017-08-28] MEDS: FOLIC ACID 1 MG TABLET PO SCH (10:20)
[2017-08-28] MEDS: AMPICILLIN/SULBACTAM 3 GM in SODIUM CHLORIDE 0.9% 100 ML IV SCH ×3 (12:00→23:04)
[2017-08-28 12:34] VITALS: BP 137/81
[2017-08-28 20:16] VITALS: BP 143/86
[2017-08-28] MEDS: OXYcodone IR 5MG TABLET PO PRN (21:14)
[2017-08-28] MEDS: DOXYCYCLINE 100MG TABLET PO SCH (21:15)
[2017-08-29 02:20] VITALS: BP 109/70
[2017-08-29 05:03] LABS: MEAN CORPUSCULAR HEMOGLOBIN 31.1 pg (27.0-34.8); MEAN CORPUSCULAR HGB CONC 31.9 g/dL (32.4-35.8); MEAN CORPUSCULAR VOLUME 97.2 fL (80-100); MEAN PLATELET VOLUME 9.4 fL (7.4-10.4); PLATELET COUNT 179 x10^3/uL (130-400); RED BLOOD COUNT 4.61 x10^6/uL (3.82-5.3); RED CELL DISTRIBUTION WIDTH 17.5 % (9.6-15.2)
[2017-08-29 05:16] LABS: ALBUMIN 2.8 g/dL (3.4-5.0); ANION GAP 7 mmol/L (5-15); CALCIUM 8.7 mg/dL (8.5-10.1); CHLORIDE 100 mmol/L (98-107)
[2017-08-29 05:18] LABS: CREATININE 1.36 mg/dL (0.55-1.02)
[2017-08-29] MEDS: AMPICILLIN/SULBACTAM 3 GM in SODIUM CHLORIDE 0.9% 100 ML IV SCH ×4 (05:23→23:01)
[2017-08-29] MEDS: LEVOTHYROXINE 125 MCG TABLET PO SCH (05:23)
[2017-08-29] MEDS: HEPARIN 5,000 UNITS/ML, 1ML SQ SCH ×3 (05:24→21:16)
[2017-08-29 05:44] LABS: MD YES
[2017-08-29 05:47] LABS: ANISOCYTOSIS 1+; BASOS#(MANUAL) 0.05 x10^3/uL (0-0.1); BASOS% (MANUAL) 1 % (0-1); EOS#(MANUAL) 2.05 x10^3/uL (0.0-0.4); EOS% (MANUAL) 38 % (1-7); LYMPH#(MANUAL) 0.38 x10^3/uL (1-3.4); LYMPHS% (MANUAL) 7 % (22-44); MONOS#(MANUAL) 0.65 x10^3/uL (0.3-2.7); MONOS% (MANUAL) 12 % (2-9); POLYCHROMASIA 1+; SEG#(MANUAL) 2.27 x10^3/uL (1.8-6.8); SEGS% (MANUAL) 42 % (42-75)
[2017-08-29 05:48] LABS: <PLATELET ESTIMATE> ADEQUATE; <PLT MORPHOLOGY> NORMAL PLT MORPH; OVALOCYTES 1+
[2017-08-29 07:06] VITALS: BP 144/80
[2017-08-29] MEDS: THIAMINE 100MG TABLET PO SCH ×2 (08:37→21:16)
[2017-08-29] MEDS: OMEPRAZOLE 20 MG CAPSULE.DR PO SCH (08:37)
[2017-08-29] MEDS: BUMETANIDE 1 MG TABLET PO SCH ×2 (08:37→21:17)
[2017-08-29] MEDS: METOLAZONE 2.5 MG TABLET PO SCH (08:37)
[2017-08-29] MEDS: DOXYCYCLINE 100MG TABLET PO SCH ×2 (08:37→21:16)
[2017-08-29] MEDS: LISINOPRIL 5 MG TABLET PO SCH (08:37)
[2017-08-29] MEDS: FOLIC ACID 1 MG TABLET PO SCH (08:38)
[2017-08-29] MEDS: SERTRALINE 50MG TABLET PO SCH (08:38)
[2017-08-29] MEDS: DIPHENHYDRAMINE 25 MG CAPSULE PO PRN ×2 (08:38→14:26)
[2017-08-29] MEDS: OXYcodone IR 5MG TABLET PO PRN ×4 (08:38→21:17)
[2017-08-29] MEDS: MULTIVITAMINS/MINERALS TABLET PO SCH (08:38)
[2017-08-29] MEDS: CARVEDILOL 6.25 MG TABLET PO SCH ×2 (08:38→21:16)
[2017-08-29] MEDS: LORATADINE 10 MG TABLET PO SCH (08:38)
[2017-08-29] MEDS ORDERED: DIPHENHYDRAMINE 50 MG/ML, 1ML IVPush ONE (10:00)
[2017-08-29 13:51] VITALS: BP 105/64
[2017-08-29 19:20] VITALS: BP 117/73
[2017-08-30] MEDS: DIPHENHYDRAMINE 25 MG CAPSULE PO PRN ×2 (00:01→16:26)
[2017-08-30 01:34] VITALS: BP 110/70
[2017-08-30 04:52] LABS: MEAN CORPUSCULAR HEMOGLOBIN 30.8 pg (27.0-34.8); MEAN CORPUSCULAR HGB CONC 31.5 g/dL (32.4-35.8); MEAN PLATELET VOLUME 9.1 fL (7.4-10.4); PLATELET COUNT 167 x10^3/uL (130-400); RED BLOOD COUNT 4.37 x10^6/uL (3.82-5.3); RED CELL DISTRIBUTION WIDTH 18.1 % (9.6-15.2)
[2017-08-30 05:06] LABS: ALBUMIN 2.7 g/dL (3.4-5.0); ANION GAP 6 mmol/L (5-15); CALCIUM 8.2 mg/dL (8.5-10.1); CHLORIDE 100 mmol/L (98-107)
[2017-08-30 05:08] LABS: CREATININE 1.59 mg/dL (0.55-1.02)
[2017-08-30] MEDS: HEPARIN 5,000 UNITS/ML, 1ML SQ SCH ×2 (05:33→11:56)
[2017-08-30] MEDS: AMPICILLIN/SULBACTAM 3 GM in SODIUM CHLORIDE 0.9% 100 ML IV SCH ×3 (05:33→17:00)
[2017-08-30] MEDS: LEVOTHYROXINE 125 MCG TABLET PO SCH (05:36)
[2017-08-30 05:40] LABS: MD YES
[2017-08-30 05:42] LABS: EOS% (MANUAL) 35 % (1-7); LYMPHS% (MANUAL) 15 % (22-44); MONOS#(MANUAL) 0.36 x10^3/uL (0.3-2.7); MONOS% (MANUAL) 6 % (2-9); SEG#(MANUAL) 2.64 x10^3/uL (1.8-6.8); SEGS% (MANUAL) 44 % (42-75)
[2017-08-30 05:43] LABS: ANISOCYTOSIS 1+
[2017-08-30 05:44] LABS: <PLATELET ESTIMATE> ADEQUATE; <PLT MORPHOLOGY> NORMAL PLT MORPH; OVALOCYTES 1+; POLYCHROMASIA 1+
[2017-08-30 06:50] VITALS: BP 110/70
[2017-08-30] MEDS: METOLAZONE 2.5 MG TABLET PO SCH (07:43)
[2017-08-30] MEDS ORDERED: BUMETANIDE 1 MG TABLET PO SCH (09:00)
[2017-08-30] MEDS: LORATADINE 10 MG TABLET PO SCH (09:15)
[2017-08-30] MEDS: THIAMINE 100MG TABLET PO SCH (09:15)
[2017-08-30] MEDS: CARVEDILOL 6.25 MG TABLET PO SCH (09:15)
[2017-08-30] MEDS: OMEPRAZOLE 20 MG CAPSULE.DR PO SCH (09:15)
[2017-08-30] MEDS: SERTRALINE 50MG TABLET PO SCH (09:15)
[2017-08-30] MEDS: LISINOPRIL 5 MG TABLET PO SCH (09:16)
[2017-08-30] MEDS: DOXYCYCLINE 100MG TABLET PO SCH (09:16)
[2017-08-30] MEDS: FOLIC ACID 1 MG TABLET PO SCH (09:16)
[2017-08-30] MEDS: MULTIVITAMINS/MINERALS TABLET PO SCH (09:21)
[2017-08-30 14:06] VITALS: BP 112/70
[2017-08-30] MEDS ORDERED: FLU VACC QS2017-18 (36MOS+) UP/PF 0.5 ML IM-VACC ONE (14:30)
[2017-08-30] MEDS ORDERED: AMOX1TAB64 PO (15:34)
[2017-08-30] MEDS ORDERED: MAGNESIUM SULFATE PMX 4GM/100M 100 ML IV ONE (17:00)
[2017-08-30 19:08] VITALS: BP 119/76
[2017-08-30 20:41] VITALS: BP 111/69
== END 2017-08-30 20:55 | disposition home or self-care (01) | DRG 602 ==
LOC: ED 12:00 → EDIP 12:14 → 4NOR 15:29
PROVIDERS: ADMIT Internal Medicine Pulmonary Disease; ATTEND Internal Medicine Pulmonary Disease
DX: L03.115 Cellulitis of right lower limb (principal); E43 Unspecified severe protein-calorie malnutrition; N17.9 Acute kidney failure, unspecified; I42.9 Cardiomyopathy, unspecified; I13.0 Hypertensive heart and chronic kidney disease with heart failure and stage 1 through stage 4 chronic kidney disease, or unspecified chronic kidney disease; I50.22 Chronic systolic (congestive) heart failure; R17 Unspecified jaundice; L97.219 Non-pressure chronic ulcer of right calf with unspecified severity; I83.012 Varicose veins of right lower extremity with ulcer of calf; L03.116 Cellulitis of left lower limb; E03.9 Hypothyroidism, unspecified; Z68.24 Body mass index [BMI] 24.0-24.9, adult; E78.5 Hyperlipidemia, unspecified; F10.10 Alcohol abuse, uncomplicated; I25.2 Old myocardial infarction; I87.2 Venous insufficiency (chronic) (peripheral); K21.9 Gastro-esophageal reflux disease without esophagitis; N18.9 Chronic kidney disease, unspecified; Z86.711 Personal history of pulmonary embolism; Z87.891 Personal history of nicotine dependence; B96.1 Klebsiella pneumoniae [K. pneumoniae] as the cause of diseases classified elsewhere; B96.4 Proteus (mirabilis) (morganii) as the cause of diseases classified elsewhere; B95.2 Enterococcus as the cause of diseases classified elsewhere; B95.62 Methicillin resistant Staphylococcus aureus infection as the cause of diseases classified elsewhere
CPT/HCPCS: 36415; 71045; 80048; 80053; 81001; 82040; 83605; 83735; 84100; 85025; 85651; 86140; 87040; 87070; 87077; 87186; 87205; 93922; 99285; J0295; J1644; J2543; J3370; J3475; J7050; Q0163

== ENCOUNTER → 2017-08-27 | Outpatient (CLI) | payer OTHER ==
[~2017-08-27] MED LIST changes: +AMOX1TAB64 PO; +BUME0.5T PO
== END | disposition home or self-care (01) ==
LOC: WOUND 08:59
PROVIDERS: ATTEND Family Medicine
DX: I87.333 Chronic venous hypertension (idiopathic) with ulcer and inflammation of bilateral lower extremity (principal); E11.622 Type 2 diabetes mellitus with other skin ulcer; L97.811 Non-pressure chronic ulcer of other part of right lower leg limited to breakdown of skin; L97.222 Non-pressure chronic ulcer of left calf with fat layer exposed; L88 Pyoderma gangrenosum; E11.52 Type 2 diabetes mellitus with diabetic peripheral angiopathy with gangrene; I11.0 Hypertensive heart disease with heart failure; I50.23 Acute on chronic systolic (congestive) heart failure; F10.19 Alcohol abuse with unspecified alcohol-induced disorder; G93.1 Anoxic brain damage, not elsewhere classified; Z86.711 Personal history of pulmonary embolism; Z86.69 Personal history of other diseases of the nervous system and sense organs; Z87.891 Personal history of nicotine dependence; Z86.718 Personal history of other venous thrombosis and embolism; Z72.89 Other problems related to lifestyle
CPT/HCPCS: G0463; WOU0463

== ENCOUNTER → 2017-09-01 | Outpatient (CLI) | payer OTHER ==
[~2017-09-01] MED LIST changes: +AMOX1TAB64 PO
== END | disposition home or self-care (01) ==
LOC: WOUND 15:15
PROVIDERS: ATTEND Internal Medicine
DX: I87.331 Chronic venous hypertension (idiopathic) with ulcer and inflammation of right lower extremity (principal); L97.222 Non-pressure chronic ulcer of left calf with fat layer exposed; L97.821 Non-pressure chronic ulcer of other part of left lower leg limited to breakdown of skin; L88 Pyoderma gangrenosum; G93.1 Anoxic brain damage, not elsewhere classified; K21.9 Gastro-esophageal reflux disease without esophagitis; E11.22 Type 2 diabetes mellitus with diabetic chronic kidney disease; I13.0 Hypertensive heart and chronic kidney disease with heart failure and stage 1 through stage 4 chronic kidney disease, or unspecified chronic kidney disease; N18.9 Chronic kidney disease, unspecified; I50.23 Acute on chronic systolic (congestive) heart failure; I25.2 Old myocardial infarction; E11.52 Type 2 diabetes mellitus with diabetic peripheral angiopathy with gangrene; F10.19 Alcohol abuse with unspecified alcohol-induced disorder; Z86.711 Personal history of pulmonary embolism; Z86.718 Personal history of other venous thrombosis and embolism; Z86.69 Personal history of other diseases of the nervous system and sense organs; Z87.891 Personal history of nicotine dependence; Z72.89 Other problems related to lifestyle
CPT/HCPCS: G0463; WOU0463

== ENCOUNTER → 2017-09-08 | Outpatient (CLI) | payer OTHER | END | disposition home or self-care (01) | LOC: WOUND 15:04 | PROVIDERS: ATTEND Internal Medicine | DX: I87.331 Chronic venous hypertension (idiopathic) with ulcer and inflammation of right lower extremity (principal); E11.622 Type 2 diabetes mellitus with other skin ulcer; L97.811 Non-pressure chronic ulcer of other part of right lower leg limited to breakdown of skin; L97.222 Non-pressure chronic ulcer of left calf with fat layer exposed; L88 Pyoderma gangrenosum; F10.19 Alcohol abuse with unspecified alcohol-induced disorder; G93.1 Anoxic brain damage, not elsewhere classified; K21.9 Gastro-esophageal reflux disease without esophagitis; I25.2 Old myocardial infarction; E11.52 Type 2 diabetes mellitus with diabetic peripheral angiopathy with gangrene; E78.5 Hyperlipidemia, unspecified; E03.9 Hypothyroidism, unspecified; E11.22 Type 2 diabetes mellitus with diabetic chronic kidney disease; I13.0 Hypertensive heart and chronic kidney disease with heart failure and stage 1 through stage 4 chronic kidney disease, or unspecified chronic kidney disease; N18.9 Chronic kidney disease, unspecified; I50.23 Acute on chronic systolic (congestive) heart failure; Z86.711 Personal history of pulmonary embolism; Z86.69 Personal history of other diseases of the nervous system and sense organs; Z87.891 Personal history of nicotine dependence; Z86.718 Personal history of other venous thrombosis and embolism; Z72.89 Other problems related to lifestyle | CPT/HCPCS: G0463; WOU0463 ==

== ENCOUNTER → 2017-09-29 | Outpatient (CLI) | payer OTHER | END | disposition home or self-care (01) | LOC: WOUND 14:45 | PROVIDERS: ATTEND Internal Medicine | DX: L97.222 Non-pressure chronic ulcer of left calf with fat layer exposed (principal); I87.332 Chronic venous hypertension (idiopathic) with ulcer and inflammation of left lower extremity; I11.0 Hypertensive heart disease with heart failure; I50.22 Chronic systolic (congestive) heart failure; L88 Pyoderma gangrenosum; F10.19 Alcohol abuse with unspecified alcohol-induced disorder; Z86.711 Personal history of pulmonary embolism | CPT/HCPCS: G0463; WOU0463 ==

== ENCOUNTER → 2017-10-27 | Outpatient (CLI) | payer OTHER | END | disposition home or self-care (01) | LOC: WOUND 13:15 | PROVIDERS: ATTEND Internal Medicine | DX: I87.331 Chronic venous hypertension (idiopathic) with ulcer and inflammation of right lower extremity (principal); L97.811 Non-pressure chronic ulcer of other part of right lower leg limited to breakdown of skin; L97.222 Non-pressure chronic ulcer of left calf with fat layer exposed; L88 Pyoderma gangrenosum; F10.19 Alcohol abuse with unspecified alcohol-induced disorder; G93.1 Anoxic brain damage, not elsewhere classified; E11.22 Type 2 diabetes mellitus with diabetic chronic kidney disease; I13.0 Hypertensive heart and chronic kidney disease with heart failure and stage 1 through stage 4 chronic kidney disease, or unspecified chronic kidney disease; N18.9 Chronic kidney disease, unspecified; I50.23 Acute on chronic systolic (congestive) heart failure; K21.9 Gastro-esophageal reflux disease without esophagitis; E11.52 Type 2 diabetes mellitus with diabetic peripheral angiopathy with gangrene; E78.5 Hyperlipidemia, unspecified; E03.9 Hypothyroidism, unspecified; I25.2 Old myocardial infarction; Z86.711 Personal history of pulmonary embolism; Z86.69 Personal history of other diseases of the nervous system and sense organs; Z86.718 Personal history of other venous thrombosis and embolism; Z87.891 Personal history of nicotine dependence; Z72.89 Other problems related to lifestyle | CPT/HCPCS: G0463; WOU0463 ==

== ENCOUNTER → 2017-12-08 | Outpatient (CLI) | payer OTHER | END | disposition home or self-care (01) | LOC: WOUND 15:07 | PROVIDERS: ATTEND Internal Medicine | DX: I87.331 Chronic venous hypertension (idiopathic) with ulcer and inflammation of right lower extremity (principal); E11.622 Type 2 diabetes mellitus with other skin ulcer; L97.811 Non-pressure chronic ulcer of other part of right lower leg limited to breakdown of skin; L97.222 Non-pressure chronic ulcer of left calf with fat layer exposed; G93.1 Anoxic brain damage, not elsewhere classified; E11.22 Type 2 diabetes mellitus with diabetic chronic kidney disease; I13.0 Hypertensive heart and chronic kidney disease with heart failure and stage 1 through stage 4 chronic kidney disease, or unspecified chronic kidney disease; I50.23 Acute on chronic systolic (congestive) heart failure; N18.9 Chronic kidney disease, unspecified; K21.9 Gastro-esophageal reflux disease without esophagitis; E78.5 Hyperlipidemia, unspecified; E03.9 Hypothyroidism, unspecified; I25.2 Old myocardial infarction; E11.52 Type 2 diabetes mellitus with diabetic peripheral angiopathy with gangrene; I96 Gangrene, not elsewhere classified; F10.19 Alcohol abuse with unspecified alcohol-induced disorder; Z86.69 Personal history of other diseases of the nervous system and sense organs; Z86.711 Personal history of pulmonary embolism; Z87.891 Personal history of nicotine dependence; Z86.718 Personal history of other venous thrombosis and embolism | CPT/HCPCS: G0463; WOU0463 ==

== ENCOUNTER → 2018-01-03 | Outpatient (CLI) | payer OTHER | END | disposition home or self-care (01) | LOC: WOUND 15:00 | PROVIDERS: ATTEND Internal Medicine | DX: I87.331 Chronic venous hypertension (idiopathic) with ulcer and inflammation of right lower extremity (principal); L97.222 Non-pressure chronic ulcer of left calf with fat layer exposed; L88 Pyoderma gangrenosum; F10.19 Alcohol abuse with unspecified alcohol-induced disorder; G93.1 Anoxic brain damage, not elsewhere classified; K21.9 Gastro-esophageal reflux disease without esophagitis; E78.5 Hyperlipidemia, unspecified; E03.9 Hypothyroidism, unspecified; I25.2 Old myocardial infarction; E11.52 Type 2 diabetes mellitus with diabetic peripheral angiopathy with gangrene; I96 Gangrene, not elsewhere classified; E11.22 Type 2 diabetes mellitus with diabetic chronic kidney disease; I13.0 Hypertensive heart and chronic kidney disease with heart failure and stage 1 through stage 4 chronic kidney disease, or unspecified chronic kidney disease; N18.9 Chronic kidney disease, unspecified; I50.23 Acute on chronic systolic (congestive) heart failure; Z86.711 Personal history of pulmonary embolism; Z86.718 Personal history of other venous thrombosis and embolism; Z87.891 Personal history of nicotine dependence | CPT/HCPCS: G0463; WOU0463 ==

== ENCOUNTER → 2018-02-02 | Outpatient (CLI) | payer OTHER | END | disposition home or self-care (01) | LOC: WOUND 14:26 | PROVIDERS: ATTEND Internal Medicine | DX: I87.331 Chronic venous hypertension (idiopathic) with ulcer and inflammation of right lower extremity (principal); E11.622 Type 2 diabetes mellitus with other skin ulcer; L97.811 Non-pressure chronic ulcer of other part of right lower leg limited to breakdown of skin; L97.222 Non-pressure chronic ulcer of left calf with fat layer exposed; L88 Pyoderma gangrenosum; E11.52 Type 2 diabetes mellitus with diabetic peripheral angiopathy with gangrene; I50.23 Acute on chronic systolic (congestive) heart failure; E78.5 Hyperlipidemia, unspecified; E03.9 Hypothyroidism, unspecified; E11.22 Type 2 diabetes mellitus with diabetic chronic kidney disease; I13.0 Hypertensive heart and chronic kidney disease with heart failure and stage 1 through stage 4 chronic kidney disease, or unspecified chronic kidney disease; N18.9 Chronic kidney disease, unspecified; G93.1 Anoxic brain damage, not elsewhere classified; I25.2 Old myocardial infarction; K21.9 Gastro-esophageal reflux disease without esophagitis; F10.19 Alcohol abuse with unspecified alcohol-induced disorder; Z86.718 Personal history of other venous thrombosis and embolism; Z86.711 Personal history of pulmonary embolism; Z87.891 Personal history of nicotine dependence | CPT/HCPCS: 99215 ==

== ENCOUNTER → 2018-10-28 | Outpatient (CLI) | payer MEDICARE ==
[~2018-10-28] MED LIST changes: -ASPI-621 PO; +ASPI1CPM7 PO; +ASPI81TA45 PO; +ATOR40TA78 PO; +BUME1TAB21 PO; +CEPH-368 PO; -CLON0.1T PO; +CLON0.1T22 PO; -IPRA3AMP IPPB; +IPRA3AMP30 IPPB; +METF500T17 PO; +SERT50TA28 PO; -SERT50TA5 PO; -SPIR25TA3 PO; +SPIR25TA5 PO
[2018-10-28 12:02] LABS: ALANINE AMINOTRANSFERASE 18 U/L (12-78); ALBUMIN 3.2 g/dL (3.4-5.0); ANION GAP 4 mmol/L (5-15); CALCIUM 9.3 mg/dL (8.5-10.1); CHLORIDE 104 mmol/L (98-107); CREATININE 0.96 mg/dL (0.55-1.02)
[2018-10-28 12:04] LABS: ALKALINE PHOSPHATASE 182 U/L (45-117); BILIRUBIN,TOTAL 0.4 mg/dL (0.2-1.0); TOTAL PROTEIN 7.6 g/dL (6.4-8.2)
== END | disposition home or self-care (01) ==
LOC: LAB 11:36
PROVIDERS: ATTEND Family Medicine
DX: E87.5 Hyperkalemia (principal); E83.42 Hypomagnesemia; E11.9 Type 2 diabetes mellitus without complications; I10 Essential (primary) hypertension; I50.9 Heart failure, unspecified
CPT/HCPCS: 36415; 80053; 83735

== ENCOUNTER 2019-06-07 07:20 | Outpatient (CLI) | payer MEDICARE ==
[~2019-06-07] VITALS: Ht 162.6 cm; Wt 73.5 kg
[~2019-06-07 07:20] MED LIST changes: -ACET-1757 PO; +ACET-2065 PO; -BUME0.5T PO; +BUME0.5T2 PO; +HYDR-826 PO; -HYDR25TA11 PO; -MAGN400T7 PO; +MAGN400T9 PO
[2019-06-07 07:25] VITALS: BP 134/76
[2019-06-07] MEDS ORDERED: FERRIC CARBOXYMALTOSE 750 MG in SODIUM CHLORIDE 0.9% 250 ML IV SCH (08:00)
== END 2019-06-07 23:59 | disposition home or self-care (01) ==
LOC: INFUSION 07:20
PROVIDERS: ATTEND Nurse Practitioner Gerontology
DX: D50.9 Iron deficiency anemia, unspecified (principal); I50.9 Heart failure, unspecified; E11.9 Type 2 diabetes mellitus without complications; Z87.448 Personal history of other diseases of urinary system; Z87.891 Personal history of nicotine dependence
CPT/HCPCS: 96365; J1439; J7050

== ENCOUNTER 2020-11-30 09:00 | Inpatient (IN) | payer MEDICARE ==
[~2020-11-30] VITALS: Ht 162.6 cm; Wt 78.3 kg
[~2020-11-30 09:00] MED LIST changes: -CYCL-259 PO; +CYCL10TA2 PO; -FOLI-17 PO; +FOLI1TAB32 PO; -HYDR-3245 PO; +HYDR1TAB53 PO; +LACO50TA PO; +LEVE500T53 PO; +ZONI100C29 PO
--- NOTE | 2020-11-30 09:20 | NUR ---
BIB EMS FROM HOME FOR C/O GLF LAST NIGHT/EARLY THIS AM. C/O L UPPER HIP PAIN. DEFORMITY/SHORTENING NOTED. UPON EMS ARRIVAL STATES THEY FOUND BLACK VOMIT. PT STATES SHE HAS HAD BLACK STOOL X FEW DAYS WELL. BS 520 PER EMS. PER EMS AOX2. PT NOTED TO BE AOX3 IN ED. VS ASSOCIATE JUV[employer] JUDGE HR 82, BP 120/65. PT RESTING ON GURNEY. NADN. MONITORS APPLIED. VSS. PLACED ON 3L NC SATING 86% RA NOW AT 92%. EKG COMPLETED. 2ND PIV INITIATED. WARM BLANKET PROVIDED. ERP DR. TREVIZO AT BEDSIDE FOR EVAL.
[2020-11-30] MEDS ORDERED: ONDANSETRON 2MG/ML, 2ML ONE ×2 (09:23→11:24)
[2020-11-30] MEDS ORDERED: MORPHINE SULFATE 4 MG/ML, 1ML ONE ×2 (09:23→11:37)
[2020-11-30] MEDS ORDERED: MORPHINE SULFATE 4 MG/ML, 1ML IVPush ONE ×2 (09:30→12:00)
[2020-11-30] MEDS ORDERED: ONDANSETRON 2MG/ML, 2ML IVPush ONE (09:30)
[2020-11-30 09:50] LABS: ALANINE AMINOTRANSFERASE 25 U/L (12-78); ALBUMIN 3.4 g/dL (3.4-5.0); ANION GAP 6 mmol/L (5-15); CALCIUM 9.5 mg/dL (8.5-10.1); CHLORIDE 99 mmol/L (98-107)
[2020-11-30 09:52] LABS: ALKALINE PHOSPHATASE 98 U/L (45-117); BILIRUBIN,TOTAL 0.6 mg/dL (0.2-1.0); TOTAL PROTEIN 7.4 g/dL (6.4-8.2)
[2020-11-30 09:55] LABS: BASOPHILS % (AUTO) 0 % (0-1); EOSINOPHILS % (AUTO) 0 % (1-7); LYMPHOCYTES % (AUTO) 4 % (22-44); MEAN CORPUSCULAR HEMOGLOBIN 28.8 pg (27.0-34.8); MEAN CORPUSCULAR HGB CONC 32.6 g/dL (32.4-35.8); MEAN PLATELET VOLUME 9.6 fL (7.4-10.4); MONOCYTES % (AUTO) 5 % (2-9); NEUTROPHILS % (AUTO) 91 % (42-75); PLATELET COUNT 205 x10^3/uL (130-400); RED BLOOD COUNT 3.71 x10^6/uL (3.82-5.3)
[2020-11-30 09:56] LABS: INTERNATIONAL NORMALIZED RATIO 1.15 (0.93-1.1); PROTHROMBIN TIME 12.3 Seconds (9.6-11.5)
[2020-11-30 10:03] LABS: MD NO
--- NOTE | 2020-11-30 10:06 | NUR ---
PT RESTING ON GURNEY. NADN. ANN.
--- NOTE | 2020-11-30 10:28 | NUR ---
PT CHART REVIEWED AND PLACED FOR RECHECK.
[2020-11-30] MEDS ORDERED: SODIUM CHLORIDE 0.9%, 500ML IVBOLUS ONE (10:30)
--- NOTE | 2020-11-30 10:51 | NUR ---
ERP DR. TREVIZO AT BEDSIDE FOR RE-EVAL. FAMILY AT BEDSIDE.
[2020-11-30] MEDS ORDERED: PANTOPRAZOLE 40 MG IV IVPush SCH (11:00)
[2020-11-30] MEDS ORDERED: PANTOPRAZOLE 40 MG IV ONE (11:10)
[2020-11-30] MEDS ORDERED: SUCCINYLCHOLINE 20 MG/ML, 10ML ONE (11:24)
[2020-11-30] MEDS ORDERED: ROCURONIUM 10MG/ML,5ML ONE (11:24)
[2020-11-30] MEDS ORDERED: SUGAMMADEX 200 MG/2 ML IVPush ONE (11:24)
[2020-11-30] MEDS ORDERED: PROPOFOL 10 MG/ML, 20ML ONE (11:24)
[2020-11-30] MEDS ORDERED: CEFAZOLIN 1,000 MG ONE (11:24)
[2020-11-30] MEDS ORDERED: LACOSAMIDE 50 MG in SODIUM CHLORIDE 0.9% 100 ML IV ONE (11:30)
--- NOTE | 2020-11-30 11:30 | NUR ---
YELLOW SLIP SENT TO PHARMACY FOR MEDS PER SEP.
--- NOTE | 2020-11-30 11:44 | NUR ---
TASK RN: PT C/O 03/04 PAIN. NOTIFIED. [employer] PER SEP. PRIMARY RN UPDATED.
--- NOTE | 2020-11-30 11:48 | NUR ---
[facility] AT BEDSIDE FOR EVAL AND ADMISSION.
--- NOTE | 2020-11-30 12:45 | NUR ---
PT RESTING ON [place]. JAY. VSS. REPORT GIVEN TO KAITLIN IBANEZ RN. ALL QUESTIONS ANSWERED. AWAITING PT TRANSPORT.
[2020-11-30] MEDS ORDERED: ACETAMINOPHEN 325 MG TABLET PO PRN (13:00)
[2020-11-30] MEDS ORDERED: hydrALAzine 20 MG/ML, 1ML IVPush PRN (13:00)
[2020-11-30] MEDS ORDERED: LABETALOL 5MG/ML, 20ML IVPush PRN (13:00)
[2020-11-30] MEDS ORDERED: ONDANSETRON 2MG/ML, 2ML IVPush PRN ×2 (13:00→17:00)
[2020-11-30] MEDS ORDERED: ENALAPRILAT 1.25 MG/ML, 2ML IVPush PRN (13:00)
[2020-11-30] MEDS: SODIUM CHLORIDE 0.9% 1,000 ML IV SCH (13:00)
[2020-11-30 13:31] VITALS: BP 118/67
[2020-11-30 14:28] VITALS: BP 118/76
[2020-11-30] MEDS: morphine SULFATE 10 MG/ML, 1ML IVPush PRN (14:35)
[2020-11-30] MEDS ORDERED: FENTANYL PF 250 MCG/5ML ONE (15:32)
[2020-11-30] MEDS ORDERED: MIDAZOLAM 1 MG/ML, 2ML ONE (15:32)
[2020-11-30] MEDS: INSULIN LISPRO 100 UNITS/ML, PEN SQ-INSULIN SCH ×2 (16:00→21:07)
[2020-11-30] MEDS ORDERED: KETOROLAC 30 MG/1 ML IV PRN (17:00)
[2020-11-30] MEDS ORDERED: hydrALAzine 20 MG/ML, 1ML IV PRN (17:00)
[2020-11-30] MEDS ORDERED: HYDROmorphone 1 MG/ML, 1ML INJ IV PRN (17:00)
[2020-11-30] MEDS ORDERED: LABETALOL 5MG/ML, 20ML IV PRN (17:00)
[2020-11-30] MEDS ORDERED: PROMETHAZINE 25 MG/ML, 1ML IV PRN (17:00)
[2020-11-30] MEDS ORDERED: DIAZEPAM 5 MG/ML, 2ML IV PRN ×2 (17:00)
[2020-11-30] MEDS ORDERED: MEPERIDINE/PF 25MG/0.5ML IVPush PRN (17:00)
[2020-11-30] MEDS ORDERED: ALBUTEROL SULFATE 2.5 MG/3 ML NPPB PRN (17:00)
[2020-11-30] MEDS ORDERED: OXYcodone 5 MG/5 ML ORAL.SOL UDC PO PRN (17:00)
[2020-11-30] MEDS: FENTANYL PF 100 MCG/2ML IV PRN ×2 (17:25→17:35)
[2020-11-30] MEDS ORDERED: FENTANYL PF 100 MCG/2ML ONE (17:27)
[2020-11-30] MEDS ORDERED: OXYcodone 5 MG/5 ML ORAL.SOL UDC ONE (17:27)
[2020-11-30] MEDS: CEFAZOLIN PMX 1GM/50ML 50 ML IV SCH (17:30)
[2020-11-30] MEDS: CARVEDILOL 6.25 MG TABLET PO SCH (18:00)
[2020-11-30 18:28] VITALS: BP 123/64
[2020-11-30 20:00] VITALS: BP 109/66
[2020-11-30] MEDS: SODIUM CHLORIDE FLUSH 10ML SYR IVF SCH (21:00)
[2020-11-30] MEDS: SERTRALINE 50MG TABLET PO SCH (21:07)
[2020-11-30] MEDS: ATORVASTATIN 80 MG TABLET PO SCH (21:07)
[2020-12-01] VITALS (7 sets, daily range): BP systolic 95–138; BP diastolic 55–71
[2020-12-01] MEDS ORDERED: LACOSAMIDE 50 MG TAB ONE (00:08)
[2020-12-01] MEDS: morphine SULFATE 10 MG/ML, 1ML IVPush PRN ×4 (00:12→17:37)
[2020-12-01] MEDS: LACOSAMIDE 50 MG TABLET PO SCH ×3 (00:12→22:15)
[2020-12-01] MEDS: CEFAZOLIN PMX 1GM/50ML 50 ML IV SCH (01:33)
[2020-12-01] MEDS: LEVOTHYROXINE 125 MCG TABLET PO SCH ×2 (06:00→06:02)
[2020-12-01] MEDS: CARVEDILOL 6.25 MG TABLET PO SCH ×3 (06:00→17:36)
[2020-12-01 06:04] LABS: BASOPHILS % (AUTO) 1 % (0-1); EOSINOPHILS % (AUTO) 1 % (1-7); LYMPHOCYTES % (AUTO) 8 % (22-44); MEAN CORPUSCULAR HEMOGLOBIN 29.8 pg (27.0-34.8); MEAN CORPUSCULAR HGB CONC 33.7 g/dL (32.4-35.8); MEAN PLATELET VOLUME 9.3 fL (7.4-10.4); MONOCYTES % (AUTO) 10 % (2-9); NEUTROPHILS % (AUTO) 81 % (42-75); PLATELET COUNT 137 x10^3/uL (130-400); RED BLOOD COUNT 2.53 x10^6/uL (3.82-5.3)
[2020-12-01 06:08] LABS: MD NO
[2020-12-01 06:10] LABS: ALANINE AMINOTRANSFERASE 23 U/L (12-78); ALBUMIN 2.5 g/dL (3.4-5.0); ANION GAP 2 mmol/L (5-15); CALCIUM 8.4 mg/dL (8.5-10.1); CHLORIDE 109 mmol/L (98-107)
[2020-12-01 06:21] LABS: ALKALINE PHOSPHATASE 68 U/L (45-117); BILIRUBIN,TOTAL 0.3 mg/dL (0.2-1.0); TOTAL PROTEIN 5.6 g/dL (6.4-8.2)
[2020-12-01] MEDS: INSULIN LISPRO 100 UNITS/ML, PEN SQ-INSULIN SCH ×4 (07:00→22:16)
[2020-12-01] MEDS: SODIUM CHLORIDE FLUSH 10ML SYR IVF SCH ×2 (08:28→21:59)
[2020-12-01] MEDS: SODIUM CHLORIDE 0.9% 1,000 ML IV SCH ×2 (08:28→22:00)
[2020-12-01] MEDS: SENNA/DOCUSATE TABLET PO SCH (08:42)
[2020-12-01] MEDS: ATORVASTATIN 80 MG TABLET PO SCH (21:59)
[2020-12-01] MEDS: SERTRALINE 50MG TABLET PO SCH (21:59)
[2020-12-02 01:05] VITALS: BP 126/72
[2020-12-02] MEDS: morphine SULFATE 10 MG/ML, 1ML IVPush PRN ×4 (02:13→20:03)
[2020-12-02 05:16] LABS: BASOPHILS % (AUTO) 0 % (0-1); EOSINOPHILS % (AUTO) 2 % (1-7); LYMPHOCYTES % (AUTO) 7 % (22-44); MD NO; MEAN CORPUSCULAR HEMOGLOBIN 29.7 pg (27.0-34.8); MEAN CORPUSCULAR HGB CONC 33.1 g/dL (32.4-35.8); MEAN PLATELET VOLUME 8.9 fL (7.4-10.4); MONOCYTES % (AUTO) 10 % (2-9); NEUTROPHILS % (AUTO) 82 % (42-75); PLATELET COUNT 107 x10^3/uL (130-400); RED BLOOD COUNT 2.66 x10^6/uL (3.82-5.3); RED CELL DISTRIBUTION WIDTH 14.5 % (9.6-15.2)
[2020-12-02] MEDS: CARVEDILOL 6.25 MG TABLET PO SCH ×2 (05:40→16:59)
[2020-12-02] MEDS: LEVOTHYROXINE 125 MCG TABLET PO SCH (05:43)
[2020-12-02 07:50] VITALS: BP 106/59
[2020-12-02] MEDS: INSULIN LISPRO 100 UNITS/ML, PEN SQ-INSULIN SCH ×4 (08:39→21:00)
[2020-12-02] MEDS: HYDROcodone/APAP 5/325 TABLET PO PRN ×2 (08:39→16:59)
[2020-12-02] MEDS: SENNA/DOCUSATE TABLET PO SCH (08:39)
[2020-12-02] MEDS: SODIUM CHLORIDE FLUSH 10ML SYR IVF SCH ×2 (12:38→22:05)
[2020-12-02 13:45] VITALS: BP 108/59
[2020-12-02] MEDS ORDERED: PANTOPRAZOLE 40MG TABLET PO ONE (16:30)
[2020-12-02 19:12] VITALS: BP 108/66
[2020-12-02 20:02] LABS: MICROSCOPIC AUTO
[2020-12-02] MEDS ORDERED: LACOSAMIDE 50 MG TAB PO SCH (21:00)
[2020-12-02] MEDS: ATORVASTATIN 80 MG TABLET PO SCH (21:24)
[2020-12-02] MEDS: SERTRALINE 50MG TABLET PO SCH (21:24)
[2020-12-02] MEDS: INSULIN GLARGINE 100 UNITS/ML, PEN SQ-INSULIN SCH (22:06)
[2020-12-03] VITALS (10 sets, daily range): BP systolic 95–133; BP diastolic 52–73
[2020-12-03] MEDS: morphine SULFATE 10 MG/ML, 1ML IVPush PRN ×3 (00:48→10:39)
[2020-12-03] MEDS: CARVEDILOL 6.25 MG TABLET PO SCH ×2 (05:26→17:54)
[2020-12-03] MEDS: LEVOTHYROXINE 125 MCG TABLET PO SCH (05:27)
[2020-12-03] MEDS ORDERED: PANTOPRAZOLE 40MG TABLET PO SCH (06:00)
[2020-12-03] MEDS: SODIUM CHLORIDE 0.9% 1,000 ML IV SCH (07:59)
[2020-12-03] MEDS: CEFTRIAXONE 2 GM in DEXTROSE 5% 50 ML IVPB SCH (08:15)
[2020-12-03] MEDS: INSULIN LISPRO 100 UNITS/ML, PEN SQ-INSULIN SCH ×2 (08:15→11:00)
[2020-12-03 08:35] LABS: BASOPHILS % (AUTO) 0 % (0-1); EOSINOPHILS % (AUTO) 1 % (1-7); LYMPHOCYTES % (AUTO) 4 % (22-44); MEAN CORPUSCULAR HEMOGLOBIN 29.9 pg (27.0-34.8); MEAN CORPUSCULAR HGB CONC 33.1 g/dL (32.4-35.8); MEAN PLATELET VOLUME 9.4 fL (7.4-10.4); MONOCYTES % (AUTO) 6 % (2-9); NEUTROPHILS % (AUTO) 90 % (42-75); PLATELET COUNT 107 x10^3/uL (130-400); RED BLOOD COUNT 2.61 x10^6/uL (3.82-5.3); RED CELL DISTRIBUTION WIDTH 14.9 % (9.6-15.2)
[2020-12-03 08:37] LABS: MD NO
[2020-12-03] MEDS: ENOXAPARIN 40 MG/0.4 ML SQ SCH ×2 (09:00→09:58)
[2020-12-03] MEDS: SENNA/DOCUSATE TABLET PO SCH (09:00)
[2020-12-03] MEDS ORDERED: DOXYCYCLINE 100MG TABLET PO SCH (09:00)
[2020-12-03] MEDS ORDERED: SODIUM CHLORIDE 0.9%, 500ML IVBOLUS ONE (09:30)
[2020-12-03] MEDS ORDERED: DOXYCYCLINE 100 MG in DEXTROSE 5% 250 ML IV SCH (09:30)
[2020-12-03] MEDS: LACOSAMIDE 50 MG in SODIUM CHLORIDE 0.9% 100 ML IV SCH ×2 (10:24→23:19)
[2020-12-03] MEDS ORDERED: OMNIPAQUE 350 MG/ML, 75ML BOTTLE ONE (13:10)
[2020-12-03] MEDS ORDERED: BISACODYL 10 MG SUPP PR ONE (13:30)
[2020-12-03] MEDS: SODIUM CHLORIDE FLUSH 10ML SYR IVF SCH ×2 (15:23→21:29)
[2020-12-03] MEDS ORDERED: DIPHENHYDRAMINE 50 MG/ML, 1ML IVPush ONE (16:00)
[2020-12-03] MEDS ORDERED: ACETAMINOPHEN 325 MG SUPP PR PRN (17:30)
[2020-12-03] MEDS ORDERED: TPN PER PHARMACY MC PRN (17:30)
[2020-12-03 17:43] LABS: ALANINE AMINOTRANSFERASE 14 U/L (12-78); ALBUMIN 1.9 g/dL (3.4-5.0); ANION GAP 3 mmol/L (5-15); CALCIUM 8.2 mg/dL (8.5-10.1); CHLORIDE 115 mmol/L (98-107); CREATININE 0.91 mg/dL (0.55-1.02)
[2020-12-03 17:46] LABS: ALKALINE PHOSPHATASE 69 U/L (45-117); BILIRUBIN,TOTAL 0.7 mg/dL (0.2-1.0); TOTAL PROTEIN 5.3 g/dL (6.4-8.2)
[2020-12-03] MEDS: PANTOPRAZOLE 40 MG IV IVPush SCH (17:52)
[2020-12-03] MEDS: KETOROLAC 30 MG/1 ML IVPush PRN (18:44)
[2020-12-03] MEDS: SERTRALINE 50MG TABLET PO SCH (20:23)
[2020-12-03] MEDS: ATORVASTATIN 80 MG TABLET PO SCH (20:23)
[2020-12-03] MEDS: INSULIN GLARGINE 100 UNITS/ML, PEN SQ-INSULIN SCH (20:24)
[2020-12-04] MEDS ORDERED: DIPHENHYDRAMINE 50 MG/ML, 1ML IVPush ONE
[2020-12-04 00:51] VITALS: BP 114/60
[2020-12-04] MEDS: DOXYCYCLINE 100 MG in DEXTROSE 5% 250 ML IV SCH ×2 (02:04→12:59)
[2020-12-04] MEDS: SODIUM CHLORIDE 0.9% 1,000 ML IV SCH (05:00)
[2020-12-04] MEDS: CARVEDILOL 6.25 MG TABLET PO SCH ×2 (05:01→17:40)
[2020-12-04] MEDS: LEVOTHYROXINE 125 MCG TABLET PO SCH (05:01)
[2020-12-04] MEDS ORDERED: PANTOPRAZOLE 40MG TABLET PO SCH (06:00)
[2020-12-04 07:12] LABS: BASOPHILS % (AUTO) 1 % (0-1); EOSINOPHILS % (AUTO) 4 % (1-7); LYMPHOCYTES % (AUTO) 7 % (22-44); MEAN CORPUSCULAR HEMOGLOBIN 29.6 pg (27.0-34.8); MEAN PLATELET VOLUME 8.5 fL (7.4-10.4); MONOCYTES % (AUTO) 8 % (2-9); NEUTROPHILS % (AUTO) 81 % (42-75); PLATELET COUNT 129 x10^3/uL (130-400); RED BLOOD COUNT 2.98 x10^6/uL (3.82-5.3); RED CELL DISTRIBUTION WIDTH 15.2 % (9.6-15.2)
[2020-12-04 07:13] LABS: MD NO
[2020-12-04 07:29] LABS: ALANINE AMINOTRANSFERASE 14 U/L (12-78); ANION GAP 2 mmol/L (5-15); CALCIUM 8.5 mg/dL (8.5-10.1); CHLORIDE 118 mmol/L (98-107); CREATININE 0.84 mg/dL (0.55-1.02)
[2020-12-04 07:35] LABS: ALKALINE PHOSPHATASE 73 U/L (45-117); BILIRUBIN,TOTAL 0.6 mg/dL (0.2-1.0); PREALBUMIN 6.1 mg/dL (20.0-40.0); TOTAL PROTEIN 5.5 g/dL (6.4-8.2); TRIGLYCERIDES 71 mg/dL (50-200)
[2020-12-04 08:01] LABS: ANION GAP 4 mmol/L (5-15); CALCIUM 8.6 mg/dL (8.5-10.1); CHLORIDE 116 mmol/L (98-107); CREATININE 0.84 mg/dL (0.55-1.02)
[2020-12-04 08:51] VITALS: BP 114/60
[2020-12-04] MEDS ORDERED: FAMOTIDINE 20 MG/2 ML IVPush SCH ×2 (09:16)
[2020-12-04] MEDS ORDERED: FILTER, DISP 1.2 MICRON FOR TPN/PVN IV PRN (09:30)
[2020-12-04] MEDS: PANTOPRAZOLE 40 MG IV IVPush SCH (09:41)
[2020-12-04] MEDS: KETOROLAC 30 MG/1 ML IVPush PRN (09:41)
[2020-12-04] MEDS: CEFTRIAXONE 2 GM in DEXTROSE 5% 50 ML IVPB SCH (09:42)
[2020-12-04] MEDS ORDERED: MAGNESIUM SULFATE PMX 4GM/100M 100 ML IVPB ONE (10:00)
[2020-12-04] MEDS: SODIUM CHLORIDE FLUSH 10ML SYR IVF SCH ×2 (10:50→20:18)
[2020-12-04] MEDS: LACOSAMIDE 50 MG in SODIUM CHLORIDE 0.9% 100 ML IV SCH (11:17)
[2020-12-04] MEDS: SENNA/DOCUSATE TABLET PO SCH (12:21)
[2020-12-04] MEDS: HYDROcodone/APAP 5/325 TABLET PO PRN ×2 (12:21→20:18)
[2020-12-04 12:29] VITALS: BP 133/74
[2020-12-04] MEDS ORDERED: INSULIN REGULAR 100 UNITS/ML, 3ML VIAL SQ-INSULIN SCH (13:00)
[2020-12-04] MEDS ORDERED: SODIUM CHLORIDE 0.9%, 500ML IVBOLUS ONE (15:30)
[2020-12-04] MEDS: POLYETHYLENE GLYCOL 17 GM PACKET PO PRN (16:03)
[2020-12-04] MEDS: D5%-0.9% NACL 1,000 ML IV SCH (16:04)
[2020-12-04] MEDS ORDERED: FAT EMUL IV SCH (17:00)
[2020-12-04] MEDS ORDERED: SMOF TPN IV SCH (17:00)
[2020-12-04] MEDS ORDERED: SODIUM CHLORIDE 0.9% 1,000 ML IV SCH (17:00)
[2020-12-04] MEDS ORDERED: DEXTROSE 70% IV SCH (17:00)
[2020-12-04] MEDS ORDERED: DEXTROSE 10% 500 ML IV PRN (17:00)
[2020-12-04] MEDS ORDERED: DEXTROSE 50%, 50ML SYRINGE IVPush PRN (17:00)
[2020-12-04] MEDS ORDERED: AMINO ACID 10% IV SCH (17:00)
[2020-12-04] MEDS ORDERED: [UNRECOGNIZED DRUG - OTHER] IV SCH (17:00)
[2020-12-04] MEDS ORDERED: INSULIN LISPRO 100 UNIT/ML, 3ML VIAL SQ-INSULIN ONE (17:30)
[2020-12-04 19:30] VITALS: BP 135/73
[2020-12-04] MEDS: SERTRALINE 50MG TABLET PO SCH (20:17)
[2020-12-04] MEDS: ATORVASTATIN 80 MG TABLET PO SCH (20:17)
[2020-12-04] MEDS: INSULIN GLARGINE 100 UNITS/ML, PEN SQ-INSULIN SCH (20:18)
[2020-12-04] MEDS: INSULIN LISPRO 100 UNITS/ML, PEN SQ-INSULIN SCH (20:19)
[2020-12-04] MEDS ORDERED: INSULIN REGULAR SQ-INSULIN SCH (21:00)
[2020-12-05] MEDS: LACOSAMIDE 50 MG in SODIUM CHLORIDE 0.9% 100 ML IV SCH ×2 (00:29→11:00)
[2020-12-05 00:49] VITALS: BP 114/74
[2020-12-05] MEDS: DOXYCYCLINE 100 MG in DEXTROSE 5% 250 ML IV SCH (01:55)
[2020-12-05 04:02] LABS: ANION GAP 2 mmol/L (5-15); CALCIUM 8.3 mg/dL (8.5-10.1); CHLORIDE 116 mmol/L (98-107); CREATININE 1.13 mg/dL (0.55-1.02)
[2020-12-05] MEDS: PANTOPRAZOLE 40MG TABLET PO SCH (05:50)
[2020-12-05] MEDS: CARVEDILOL 6.25 MG TABLET PO SCH ×2 (05:50→17:23)
[2020-12-05] MEDS: LEVOTHYROXINE 125 MCG TABLET PO SCH (05:50)
[2020-12-05] MEDS: D5%-0.9% NACL 1,000 ML IV SCH ×2 (05:50→21:02)
[2020-12-05] MEDS: HYDROcodone/APAP 5/325 TABLET PO PRN ×2 (05:51→13:34)
[2020-12-05 08:22] VITALS: BP 106/62
[2020-12-05] MEDS: CEFTRIAXONE 2 GM in DEXTROSE 5% 50 ML IVPB SCH (08:52)
[2020-12-05] MEDS: SODIUM CHLORIDE FLUSH 10ML SYR IVF SCH ×2 (08:54→20:57)
[2020-12-05] MEDS: INSULIN LISPRO 100 UNITS/ML, PEN SQ-INSULIN SCH ×4 (08:54→20:56)
[2020-12-05] MEDS: SENNA/DOCUSATE TABLET PO SCH (08:55)
[2020-12-05 13:35] VITALS: BP 122/74
[2020-12-05 17:25] LABS: BASOPHILS % (AUTO) 0 % (0-1); EOSINOPHILS % (AUTO) 7 % (1-7); LYMPHOCYTES % (AUTO) 8 % (22-44); MEAN CORPUSCULAR HGB CONC 32.9 g/dL (32.4-35.8); MEAN PLATELET VOLUME 8.6 fL (7.4-10.4); MONOCYTES % (AUTO) 7 % (2-9); NEUTROPHILS % (AUTO) 78 % (42-75); PLATELET COUNT 151 x10^3/uL (130-400); RED BLOOD COUNT 2.83 x10^6/uL (3.82-5.3)
[2020-12-05 17:26] LABS: MD NO
[2020-12-05 17:38] LABS: ALANINE AMINOTRANSFERASE 16 U/L (12-78); ALBUMIN 1.9 g/dL (3.4-5.0); ANION GAP 4 mmol/L (5-15); CALCIUM 8.3 mg/dL (8.5-10.1); CHLORIDE 113 mmol/L (98-107)
[2020-12-05 17:40] LABS: ALKALINE PHOSPHATASE 85 U/L (45-117); BILIRUBIN,TOTAL 0.5 mg/dL (0.2-1.0); TOTAL PROTEIN 5.5 g/dL (6.4-8.2)
[2020-12-05 19:57] VITALS: BP 146/79
[2020-12-05] MEDS: DOXYCYCLINE 100MG TABLET PO SCH (20:54)
[2020-12-05] MEDS: ATORVASTATIN 80 MG TABLET PO SCH (20:54)
[2020-12-05] MEDS: SERTRALINE 50MG TABLET PO SCH (20:54)
[2020-12-05] MEDS: LACOSAMIDE 50 MG TAB PO SCH (20:55)
[2020-12-05] MEDS: INSULIN GLARGINE 100 UNITS/ML, PEN SQ-INSULIN SCH (20:56)
[2020-12-06 00:46] VITALS: BP 155/84
[2020-12-06] MEDS: PANTOPRAZOLE 40MG TABLET PO SCH (05:24)
[2020-12-06] MEDS: LEVOTHYROXINE 125 MCG TABLET PO SCH (05:24)
[2020-12-06] MEDS: CARVEDILOL 6.25 MG TABLET PO SCH ×2 (05:25→18:09)
[2020-12-06 07:11] VITALS: BP 139/74
[2020-12-06] MEDS: INSULIN LISPRO 100 UNITS/ML, PEN SQ-INSULIN SCH ×4 (08:22→20:32)
[2020-12-06] MEDS: CEFTRIAXONE 2 GM in DEXTROSE 5% 50 ML IVPB SCH (08:22)
[2020-12-06] MEDS: SENNA/DOCUSATE TABLET PO SCH (08:53)
[2020-12-06] MEDS: LACOSAMIDE 50 MG TAB PO SCH ×2 (08:53→20:29)
[2020-12-06] MEDS: DOXYCYCLINE 100MG TABLET PO SCH ×2 (08:53→20:30)
[2020-12-06] MEDS: SODIUM CHLORIDE FLUSH 10ML SYR IVF SCH ×2 (08:53→20:29)
[2020-12-06] MEDS: ENOXAPARIN 40 MG/0.4 ML SQ SCH (08:53)
[2020-12-06 10:09] LABS: BASOPHILS % (AUTO) 0 % (0-1); EOSINOPHILS % (AUTO) 6 % (1-7); LYMPHOCYTES % (AUTO) 10 % (22-44); MEAN CORPUSCULAR HEMOGLOBIN 29.5 pg (27.0-34.8); MEAN CORPUSCULAR HGB CONC 32.9 g/dL (32.4-35.8); MEAN PLATELET VOLUME 9.2 fL (7.4-10.4); MONOCYTES % (AUTO) 7 % (2-9); NEUTROPHILS % (AUTO) 77 % (42-75); PLATELET COUNT 165 x10^3/uL (130-400); RED BLOOD COUNT 2.83 x10^6/uL (3.82-5.3)
[2020-12-06 10:12] LABS: MD NO
[2020-12-06 10:17] LABS: ANION GAP 3 mmol/L (5-15); CALCIUM 8.3 mg/dL (8.5-10.1); CHLORIDE 113 mmol/L (98-107); CREATININE 1.12 mg/dL (0.55-1.02)
[2020-12-06] MEDS: HYDROcodone/APAP 5/325 TABLET PO PRN (10:40)
[2020-12-06] MEDS: POLYETHYLENE GLYCOL 17 GM PACKET PO PRN (10:41)
[2020-12-06] MEDS: D5%-0.9% NACL 1,000 ML IV SCH (12:35)
[2020-12-06 13:12] VITALS: BP 153/79
[2020-12-06] MEDS: ATORVASTATIN 80 MG TABLET PO SCH (20:29)
[2020-12-06] MEDS: SERTRALINE 50MG TABLET PO SCH (20:29)
[2020-12-06] MEDS: INSULIN GLARGINE 100 UNITS/ML, PEN SQ-INSULIN SCH (20:32)
[2020-12-06 21:10] VITALS: BP 161/77
[2020-12-07 01:03] VITALS: BP 160/73
[2020-12-07] MEDS: D5%-0.9% NACL 1,000 ML IV SCH (02:26)
[2020-12-07] MEDS: CARVEDILOL 6.25 MG TABLET PO SCH ×2 (05:50→18:32)
[2020-12-07] MEDS: LEVOTHYROXINE 125 MCG TABLET PO SCH (05:50)
[2020-12-07] MEDS: PANTOPRAZOLE 40MG TABLET PO SCH (05:51)
[2020-12-07 06:52] VITALS: BP 160/78
[2020-12-07] MEDS: ENOXAPARIN 40 MG/0.4 ML SQ SCH (09:00)
[2020-12-07] MEDS: SENNA/DOCUSATE TABLET PO SCH (09:00)
[2020-12-07] MEDS: INSULIN LISPRO 100 UNITS/ML, PEN SQ-INSULIN SCH ×4 (10:16→20:19)
[2020-12-07] MEDS: CEFTRIAXONE 2 GM in DEXTROSE 5% 50 ML IVPB SCH (10:18)
[2020-12-07] MEDS: DOXYCYCLINE 100MG TABLET PO SCH ×2 (10:27→20:20)
[2020-12-07] MEDS: AMLODIPINE 5 MG TABLET PO SCH (10:27)
[2020-12-07] MEDS: LACOSAMIDE 50 MG TAB PO SCH ×2 (10:27→20:20)
[2020-12-07] MEDS: SODIUM CHLORIDE FLUSH 10ML SYR IVF SCH ×2 (10:28→20:20)
[2020-12-07 13:14] VITALS: BP 148/73
[2020-12-07] MEDS: HYDROcodone/APAP 5/325 TABLET PO PRN (13:21)
[2020-12-07 19:56] VITALS: BP 153/79
[2020-12-07] MEDS: INSULIN GLARGINE 100 UNITS/ML, PEN SQ-INSULIN SCH (20:19)
[2020-12-07] MEDS: ATORVASTATIN 80 MG TABLET PO SCH (20:20)
[2020-12-07] MEDS: SERTRALINE 50MG TABLET PO SCH (20:20)
[2020-12-08 00:22] VITALS: BP 159/80
[2020-12-08] MEDS: PANTOPRAZOLE 40MG TABLET PO SCH (05:36)
[2020-12-08] MEDS: CARVEDILOL 6.25 MG TABLET PO SCH ×2 (05:36→17:13)
[2020-12-08] MEDS: LEVOTHYROXINE 125 MCG TABLET PO SCH (05:37)
[2020-12-08 07:40] VITALS: BP 149/77
[2020-12-08] MEDS: CEFTRIAXONE 2 GM in DEXTROSE 5% 50 ML IVPB SCH (08:04)
[2020-12-08] MEDS: SODIUM CHLORIDE FLUSH 10ML SYR IVF SCH ×2 (08:05→20:36)
[2020-12-08] MEDS: INSULIN LISPRO 100 UNITS/ML, PEN SQ-INSULIN SCH ×4 (08:05→20:37)
[2020-12-08] MEDS: AMLODIPINE 5 MG TABLET PO SCH (08:06)
[2020-12-08] MEDS: SENNA/DOCUSATE TABLET PO SCH (08:06)
[2020-12-08] MEDS: DOXYCYCLINE 100MG TABLET PO SCH ×2 (08:06→20:38)
[2020-12-08] MEDS: LACOSAMIDE 50 MG TAB PO SCH ×2 (08:06→20:38)
[2020-12-08] MEDS: ENOXAPARIN 40 MG/0.4 ML SQ SCH (08:06)
[2020-12-08 12:38] LABS: BASOPHILS % (AUTO) 1 % (0-1); EOSINOPHILS % (AUTO) 4 % (1-7); LYMPHOCYTES % (AUTO) 8 % (22-44); MEAN CORPUSCULAR HEMOGLOBIN 29.1 pg (27.0-34.8); MEAN PLATELET VOLUME 8.9 fL (7.4-10.4); MONOCYTES % (AUTO) 6 % (2-9); NEUTROPHILS % (AUTO) 81 % (42-75); PLATELET COUNT 241 x10^3/uL (130-400); RED BLOOD COUNT 3.44 x10^6/uL (3.82-5.3); RED CELL DISTRIBUTION WIDTH 14.7 % (9.6-15.2)
[2020-12-08 12:48] LABS: ALBUMIN 2.1 g/dL (3.4-5.0); CALCIUM 9.1 mg/dL (8.5-10.1); CHLORIDE 106 mmol/L (98-107)
[2020-12-08 12:51] LABS: ALANINE AMINOTRANSFERASE 13 U/L (12-78); ALKALINE PHOSPHATASE 85 U/L (45-117); BILIRUBIN,TOTAL 0.5 mg/dL (0.2-1.0); TOTAL PROTEIN 6.1 g/dL (6.4-8.2)
[2020-12-08 12:56] LABS: ANION GAP 6 mmol/L (5-15)
[2020-12-08 13:10] LABS: MD NO
[2020-12-08 13:11] VITALS: BP 144/83
[2020-12-08] MEDS: HYDROcodone/APAP 5/325 TABLET PO PRN ×2 (14:29→15:32)
[2020-12-08] MEDS: INSULIN GLARGINE 100 UNITS/ML, PEN SQ-INSULIN SCH (20:37)
[2020-12-08] MEDS: SERTRALINE 50MG TABLET PO SCH (20:38)
[2020-12-08] MEDS: ATORVASTATIN 80 MG TABLET PO SCH (20:38)
[2020-12-08 21:19] VITALS: BP 150/75
[2020-12-09 02:08] VITALS: BP 163/74
[2020-12-09] MEDS: LEVOTHYROXINE 125 MCG TABLET PO SCH (05:12)
[2020-12-09] MEDS: CARVEDILOL 6.25 MG TABLET PO SCH (05:12)
[2020-12-09] MEDS: PANTOPRAZOLE 40MG TABLET PO SCH (05:12)
[2020-12-09 06:26] VITALS: BP 160/76
[2020-12-09] MEDS: INSULIN LISPRO 100 UNITS/ML, PEN SQ-INSULIN SCH ×3 (07:37→16:50)
[2020-12-09] MEDS: CEFTRIAXONE 2 GM in DEXTROSE 5% 50 ML IVPB SCH (08:56)
[2020-12-09] MEDS: ENOXAPARIN 40 MG/0.4 ML SQ SCH (08:57)
[2020-12-09] MEDS: SODIUM CHLORIDE FLUSH 10ML SYR IVF SCH (08:57)
[2020-12-09] MEDS: AMLODIPINE 5 MG TABLET PO SCH (08:58)
[2020-12-09] MEDS: DOXYCYCLINE 100MG TABLET PO SCH (08:58)
[2020-12-09] MEDS: HYDROcodone/APAP 5/325 TABLET PO PRN ×2 (08:58→16:53)
[2020-12-09] MEDS: LACOSAMIDE 50 MG TAB PO SCH (08:58)
[2020-12-09] MEDS: SENNA/DOCUSATE TABLET PO SCH (08:59)
[2020-12-09] MEDS: morphine SULFATE 10 MG/ML, 1ML IVPush PRN (11:58)
[2020-12-09 12:58] VITALS: BP 160/78
[2020-12-09] MEDS ORDERED: AMLO-150 PO (13:15)
[2020-12-09] MEDS ORDERED: CEFT1VIA13 IV (13:15)
[2020-12-09] MEDS ORDERED: DOXY100T PO (13:15)
[2020-12-09] MEDS ORDERED: HYDR-2214 PO (13:15)
== END 2020-12-09 17:30 | DRG 480 ==
LOC: ED 09:23 → EDIP 11:01 → 4EST 12:56 → 4WST 20:18 → 4EST 20:19
PROVIDERS: ADMIT Internal Medicine; ATTEND Hospitalist
PROC: 0QS706Z Reposition Left Upper Femur with Intramedullary Internal Fixation Device, Open Approach (ICD-10-PCS; principal; 2020-11-30 15:30)
PROC: 02HV33Z Insertion of Infusion Device into Superior Vena Cava, Percutaneous Approach (ICD-10-PCS; 2020-12-04)
PROC: B5181ZA Fluoroscopy of Superior Vena Cava using Low Osmolar Contrast, Guidance (ICD-10-PCS; 2020-12-04)
PROC: B548ZZA Ultrasonography of Superior Vena Cava, Guidance (ICD-10-PCS; 2020-12-04)
DX: S72.142A Displaced intertrochanteric fracture of left femur, initial encounter for closed fracture (principal); N17.0 Acute kidney failure with tubular necrosis; J18.9 Pneumonia, unspecified organism; G93.1 Anoxic brain damage, not elsewhere classified; D62 Acute posthemorrhagic anemia; I50.32 Chronic diastolic (congestive) heart failure; Z96.649 Presence of unspecified artificial hip joint; Z66 Do not resuscitate; E03.9 Hypothyroidism, unspecified; E11.9 Type 2 diabetes mellitus without complications; E78.5 Hyperlipidemia, unspecified; G40.909 Epilepsy, unspecified, not intractable, without status epilepticus; I11.0 Hypertensive heart disease with heart failure; W18.39XA Other fall on same level, initial encounter; I25.10 Atherosclerotic heart disease of native coronary artery without angina pectoris; I27.20 Pulmonary hypertension, unspecified; K59.00 Constipation, unspecified; S09.90XA Unspecified injury of head, initial encounter; Z90.411 Acquired partial absence of pancreas; Z91.19 Patient's noncompliance with other medical treatment and regimen; Z95.828 Presence of other vascular implants and grafts; Z86.711 Personal history of pulmonary embolism; Z86.73 Personal history of transient ischemic attack (TIA), and cerebral infarction without residual deficits; Z82.5 Family history of asthma and other chronic lower respiratory diseases; Z82.49 Family history of ischemic heart disease and other diseases of the circulatory system; I25.2 Old myocardial infarction; Y93.89 Activity, other specified; Y99.8 Other external cause status; Y92.009 Unspecified place in unspecified non-institutional (private) residence as the place of occurrence of the external cause; Z20.822 Contact with and (suspected) exposure to COVID-19
CPT/HCPCS: 36415; 36430; 36573; 36600; 70450; 71045; 71275; 74018; 76000; 80048; 80053; 81001; 82803; 82962; 83036; 83605; 83735; 84100; 84134; 84145; 84443; 84478; 85014; 85018; 85025; 85379; 85610; 85730; 86850; 86900; 86923; 87040; 87635; 93005; 96374; 96375; C1713; C9254; G0378; J0690; J0696; J1650; J1885; J2250; J2405; J2704; J3010; J7042; J7060; Q9967; C1751; C9113; J0330; J1200; J1815; J1817; J2270; J3475; J7030; J7040; P9016